=== PATIENT | female | born 1995 | race Caucasian/White ===

== ENCOUNTER → 2018-06-16 15:51 | Outpatient (CLI) | payer BC, SELFPAY ==
[2018-06-16 16:11] LABS: Basophils % 0.3 % (0.1-2.0); Eosinophils # 0.2 K/mm3 (0.0-0.4); Eosinophils % 1.4 % (0.1-12.0); Hematocrit 38.8 % (37.0-47.0); Hemoglobin 13.2 g/dL (12.2-16.2); Lymphocytes # 2.8 K/mm3 (0.7-4.5); Lymphocytes % 24.6 K/mm3 (10-50); Mean Corpuscular HGB Conc 34.1 g/dL (31.8-35.4); Mean Corpuscular Hemoglobin 29.9 pg (27.0-31.2); Mean Corpuscular Volume 87.6 fl (81-99); Mean Platelet Volume 8.7 fl (7.4-10.4); Monocytes # 0.6 K/mm3 (0.1-1.0); Monocytes % 5.3 % (1.7-9.3); Neutrophils # 7.7 K/mm3 (1.8-7.8); Neutrophils % 68.4 % (37.0-80.0); Platelet Count 222 K/mm3 (142-424); Red Blood Count 4.42 M/mm3 (4.20-5.40); Red Cell Distribution Width 12.5 % (11.5-17.5); White Blood Count 11.2 K/mm3 (4.8-10.8)
[2018-06-18 08:27] LABS: HIV Screen 4th Generation wRfx Non Reactive (Non Reactive); Rubella Antibodies, IgG <0.90 index (Immune >0.99)
[2018-06-18 08:36] LABS: Rapid Plasma Reagin Ab Titer Non Reactive (NonRea<1:1)
[2018-06-18 13:46] LABS: Hepatitis B Surface Antigen Negative (Negative); Hepatitis C Antibody <0.1 s/co ratio (0.0-0.9)
== END ==
PROVIDERS: Family Provider Family Medicine; PCP Family Medicine; Visit Provider Nurse Practitioner Obstetrics & Gynecology
DX: Z34.90 Encounter for supervision of normal pregnancy, unspecified, unspecified trimester (principal)
CPT/HCPCS: 36415; 85025; 86592; 86703; 86762; 86850; 87340; 87380; G0432

== ENCOUNTER → 2018-06-23 15:09 | Outpatient (CLI) | payer BC, SELFPAY ==
--- NOTE | 2018-06-23 15:14 | US_ITS ---
US OB transvaginal HISTORY: ITS.REASON: US OB Dates ORDERING PHYSICIAN: Rodger Cruz MD PATIENT AGE: 23 years COMPARISON: None FINDINGS: An intrauterine gestational sac is present with a pole with a crown-rump length of 2.34cm correlating to gestational age of 9w1d. heart tones are present with an FHR of 149 bpm's. Yolk sac is noted. The amnion and chorion have not yet fused. Adnexa: Unremarkable. IMPRESSION: Live intrauterine gestation at 9 weeks 1 day as described above. Estimated due date by ultrasound is 01/25/2019
== END ==
PROVIDERS: Family Provider Family Medicine; PCP Family Medicine; Visit Provider Nurse Practitioner Obstetrics & Gynecology
DX: O26.841 Uterine size-date discrepancy, first trimester (principal)
CPT/HCPCS: 76817

== ENCOUNTER → 2018-09-08 14:53 | Outpatient (CLI) | payer BC, SELFPAY ==
--- NOTE | 2018-09-08 14:58 | US_ITS ---
US OB /maternal detail: INDICATION: ITS.REASON: US OB Complete ORDERING PHYSICIAN: Rodger Cruz MD PATIENT AGE: 23 years TECHNIQUE: ultrasound transabdominal scanning. COMPARISON: No previous relevant studies. FINDINGS: Single viable intrauterine gestation. Cephalic position. Placenta: Posterior placenta grade 1. There is average amount fluid. The cervix appears satisfactory. Closed and measuring 3 cm in length. Complete survey performed and was unremarkable on the submitted images as in PACS. No discrete anomalies identified on survey imaging by technologist. Active fetus. Three-vessel cord with satisfactory umbilical cord insertion. 4- chamber heart noted. Survey of brain & ventricles unremarkable. Face and neck survey unremarkable. Diaphragm and chest views unremarkable. Abdomen: Both kidneys noted and unremarkable. Stomach noted and satisfactory. Spine: Survey of the spine satisfactory with no anomalies identified nor imaged. Both arms and legs noted. Amniotic Fluid: Adequate. Maternal adnexa: No significant findings. Measurements: Average ultrasound age 20w2d. Gestational Age 20w1d. Estimated due date by ultrasound age 0401/24/2019. Estimated weight 329 grams. BPD = 20w4d OFD = 20w4d HC = 19w6d AC = 20w2d FL = 20w0d Growth Percentile= 40% Heart Rate = 152 Cerebellum = 20w0d Humerus = 20w0d HC/AC is 1.15 (1.09-1.26). CI is 79% (70-86%). FL/BPD is 67%. FL/AC is 21%. IMPRESSION: There is a single live fetus which is in cephalic presentation. Average ultrasound age is 20 weeks and 2 days with an estimated due date of 01/24/2019. All parameters correlate. heart and body motion noted. No obvious anomalies. Please see above for detail
== END ==
PROVIDERS: PCP Family Medicine; Visit Provider Nurse Practitioner Obstetrics & Gynecology
DX: Z36.0 Encounter for antenatal screening for chromosomal anomalies (principal)
CPT/HCPCS: 76811

== ENCOUNTER → 2018-11-05 08:44 | Outpatient (CLI) | payer BC, SELFPAY ==
[2018-11-05 10:09] LABS: Glucose,Fasting 88 mg/dL (60-105)
[2018-11-05 10:52] LABS: Glucose 1 Hour 181 mg/dL (74-106)
== END ==
PROVIDERS: Visit Provider Nurse Practitioner Obstetrics & Gynecology
DX: Z34.90 Encounter for supervision of normal pregnancy, unspecified, unspecified trimester (principal)
CPT/HCPCS: 82951

== ENCOUNTER → 2018-11-12 08:41 | Outpatient (CLI) | payer BC, SELFPAY ==
[2018-11-12 09:11] LABS: Glucose,Fasting 92 mg/dL (60-105)
[2018-11-12 10:50] LABS: Glucose 1 Hour 203 mg/dL (74-106)
[2018-11-12 11:45] LABS: Glucose 2 Hour 210 mg/dL (74-106)
[2018-11-12 13:10] LABS: Glucose 3 Hour 163 mg/dL (74-106)
== END ==
PROVIDERS: PCP Family Medicine; Visit Provider Nurse Practitioner Obstetrics & Gynecology
DX: O99.814 Abnormal glucose complicating childbirth (principal); Z34.90 Encounter for supervision of normal pregnancy, unspecified, unspecified trimester
CPT/HCPCS: 36415; 82951

== ENCOUNTER → 2018-11-30 12:27 | Outpatient (CLI) | payer BC, SELFPAY ==
[2018-12-02 06:14] LABS: Buprenorphine, Urine Negative ng/mL (Cutoff=10)
== END ==
PROVIDERS: Visit Provider Nurse Practitioner Obstetrics & Gynecology
DX: Z34.90 Encounter for supervision of normal pregnancy, unspecified, unspecified trimester (principal)
CPT/HCPCS: 80307

== ENCOUNTER 2018-12-21 01:15 | Outpatient (CLI) | payer BC, SELFPAY ==
[2018-12-21 01:44] VITALS: BMI 27.1
[2018-12-21 02:02] VITALS: BP 125/81; PULSE 82; RESP 14; TEMP 36.5; O2SAT 96
[2018-12-21 02:08] LABS: Microscopic, Urine URINE MICROSCOPIC (MICROSCOPIC)
[2018-12-21 02:10] LABS: Appearance,Urine SL CLOUDY (Clear); Bilirubin,Urine Negative (Negative); Blood, Urine Negative (Negative); Color,Urine DK YELLOW (Yellow); Glucose,Urine (UA) Negative (Negative); Ketones,Urine Negative (Negative); Leukocyte Esterase,Urine 1+ (Negative); Nitrate,Urine Negative (Negative); Protein,Urine Negative (Negative); Specific Gravity, Urine 1.025 (1.005-1.030); Urobilinogen,Urine 0.2 EU/dl (0.2)
[2018-12-21 02:16] LABS: Bacteria,Urine 2+ /lpf; Mucus,Urine 1+ /lpf; Squamous Epithelial Cell,Urine Occasional #/hpf (0-5)
[2018-12-21 02:29] VITALS: BMI 25.5
== END 2018-12-21 02:58 | disposition home or self-care (01) ==
LOC: OBOUT 01:17 → OB 01:19
PROVIDERS: PCP Family Medicine; Visit Provider Nurse Practitioner Obstetrics & Gynecology
DX: O26.893 Other specified pregnancy related conditions, third trimester (principal); Z3A.35 35 weeks gestation of pregnancy; R10.30 Lower abdominal pain, unspecified
CPT/HCPCS: 59025; 81001; 87086

== ENCOUNTER → 2018-12-28 18:04 | Outpatient (CLI) | payer BC, SELFPAY | PROVIDERS: Visit Provider Nurse Practitioner Obstetrics & Gynecology | DX: Z34.90 Encounter for supervision of normal pregnancy, unspecified, unspecified trimester (principal) | CPT/HCPCS: 86403 ==

== ENCOUNTER 2019-01-19 05:04 | Inpatient (IN) ==
[2019-01-19 05:47] VITALS: BP 117/61
[2019-01-19 05:52] LABS: Microscopic, Urine URINE MICROSCOPIC (MICROSCOPIC)
[2019-01-19 05:53] LABS: Basophils % 0.3 % (0.1-2.0); Eosinophils # 0.3 K/mm3 (0.0-0.4); Eosinophils % 2.1 % (0.1-12.0); Hemoglobin 11.8 g/dL (12.2-16.2); Lymphocytes # 3.1 K/mm3 (0.7-4.5); Lymphocytes % 22.7 % (10-50); Mean Corpuscular HGB Conc 33.9 g/dL (31.8-35.4); Mean Corpuscular Volume 85.6 fl (81-99); Mean Platelet Volume 9.7 fl (7.4-10.4); Monocytes # 0.7 K/mm3 (0.1-1.0); Monocytes % 5.3 % (1.7-9.3); Neutrophils # 9.6 K/mm3 (1.8-7.8); Neutrophils % 69.6 % (37.0-80.0); Platelet Count 278 K/mm3 (142-424); Red Blood Count 4.09 M/mm3 (4.20-5.40); Red Cell Distribution Width 14.3 % (11.5-17.5); White Blood Count 13.7 K/mm3 (4.8-10.8)
[2019-01-19 05:58] LABS: Appearance,Urine CLEAR (Clear); Bilirubin,Urine Negative (Negative); Blood, Urine Negative (Negative); Color,Urine YELLOW (Yellow); Glucose,Urine (UA) Negative (Negative); Ketones,Urine Negative (Negative); Leukocyte Esterase,Urine 1+ (Negative); Protein,Urine Negative (Negative); Urobilinogen,Urine 0.2 EU/dl (0.2)
[2019-01-19 06:06] LABS: Amphetamine/Metha Screen,Urine Negative ng/mL (<1000); Barbiturates Screen,Urine Negative ng/mL (<200); Benzodiazepines Screen,Urine Negative ng/mL (<200); Cannabinoid Screen,Urine Negative ng/mL (<50); Cocaine Screen,Urine Negative ng/mL (<300); Methadone Screen,Urine Negative ng/mL (<300); Opiate Screen,Urine Negative ng/mL (<300); Phencyclidine Screen,Urine Negative ng/mL (<25)
[2019-01-19 06:09] LABS: Bacteria,Urine 2+ /lpf; Mucus,Urine 1+ /lpf; Squamous Epithelial Cell,Urine 20-50 #/hpf (0-5)
--- NOTE | 2019-01-19 08:55 | Progress Note ---
Internal Medicine - PN: Subj *Date: 01/19/19 *Time: 08:53 Interval history: She is a 23-year-old 2 para 1 at 39 and 1 weeks gestational age. She has had lots of pressure and cramps as well as a small for gestational age . As a result of that she is brought in for induction of labor at term. Exam Vital signs and Labs for Last 24 Hours: Temp Pulse Resp BP Pulse Ox 98.4 F 92 H 18 117/61 97 01/19/19 05:42 01/19/19 05:42 01/19/19 05:42 01/19/19 05:42 01/19/19 05:42 Laboratory Results - last 24 hr 01/19/19 05:30: WBC 13.7 H, RBC 4.09 L, Hgb 11.8 L, Hct 35.0 L, MCV 85.6, MCH 29.0, MCHC 33.9, RDW 14.3, Plt Count 278, MPV 9.7, Neut % (Auto) 69.6, Lymph % (Auto) 22.7, [place] % (Auto) 5.3, Eos % (Auto) 2.1, Baso % (Auto) 0.3, Neut # (Auto) 9.6 H, Lymph # (Auto) 3.1, [place] # (Auto) 0.7, Eos # (Auto) 0.3, Baso # (Auto) 0.0 01/19/19 05:30: Blood Type A Positive, Antibody Screen Negative 01/19/19 05:37: POC Glucose 112 H 01/19/19 05:40: Urine Color Yellow, Urine Appearance Clear, Urine pH 7.0, Ur Specific [place] 1.020, Urine Protein Negative, Urine Glucose (UA) Negative, Urine Ketones Negative, Urine Blood Negative, Urine Nitrate Negative, Urine Bilirubin Negative, Urine Urobilinogen 0.2, Ur Leukocyte Esterase 1+ A, Urine WBC 5-10, Ur Squamous Epith Cells 20-50, Urine Bacteria 2+, Urine Mucus 1+ 01/19/19 05:40: Urine Opiates Screen Negative, Urine Methadone Screen Negative, Ur Barbituates Screen Negative, Ur Phencyclidine Scrn Negative, Ur Amphetamines Screen Negative, U Benzodiazepines Scrn Negative, Urine Cocaine Screen Negative, U Marijuana (THC) Screen Negative I & O for Last 24 hours: Intake & Output 01/16/19 01/17/19 01/18/19 01/19/19 11:59 11:59 11:59 11:59 Weight 172 lb - Constitutional no acute distress - *Routine Exam Patient deferred: external exam, groin exam, perineal exam Assessment and Plan (1) Normal delivery Current visit: Yes Status: Acute Category: Medical Code(s): O80 - Encounter for full-term uncomplicated delivery (2) Small for gestational age fetus during in third trimester Current visit: Yes Status: Acute Category: Medical Code(s): O36.5930 - Maternal care for other known or suspected poor growth, third trimester, not applicable or unspecified - Assessment and plan all Dx Assessment and Plan for all problems:: She is 3 cm dilated 75% effaced and station -2. I ruptured her membranes and there was clear fluid. She is simin every 2-3 minutes. The nonstress test is reactive. We will expect a vaginal delivery.
--- NOTE | 2019-01-19 11:16 | Progress Note ---
Labor Note - Subjective: Date: 01/19/19 Time: 11:15 - Objective: NST:: Reactive Contractions:: every 2-3 minutes Cervical Dilation:: 6-7 Effacement:: 100% Station: +1 Membranes: artificially ruptured - Fetus: Monitoring?: Yes monitoring type:: External - Assessment: Labor progressing?: Yes Cephalopelvic disproportion?: No Patient Problems: All Active Problems Abscess, dental (Acute) Normal delivery (Acute) Small for gestational age fetus during in third trimester (Acute) (Acute) - Plan: Anesthesia for epidural?: Yes Continue to labor down?: Yes Plan for ?: No Continue to monitor?: Yes Comment:: She just received her epidural. She is progressing well. She is 6-7 cm. Her cervix has thinned out and the baby's head is quite low.
--- NOTE | 2019-01-19 13:39 | Procedure Note ---
- Delivery Note Delivery Date:: 01/19/19 Delivery Time:: 13:28 Anesthesia Type: Epidural Was labor medically induced?: Yes Induction method: per pitocin protocol Infant delivered prior to 39 weeks?: No at 1 minute: 8 at 5 minutes: 9 Delivery Procedure:: She is a 23-year-old 2 para 1 at 39 and 1 weeks gestational age. She barton s had lots of contractions and pressure. She was found to be 3-4 cm dilated. As result of that we elected to augment her labor at term. She was started on IV oxytocin and had her membranes ruptured. Under labor epidural she progressed to full dilation and delivered spontaneously a liveborn female child at 1:28 PM in the afternoon of January 19, 2019. On deliver the head the anterior shoulder then delivered followed by the rest of the infant's body atraumatically. The oropharynx and nasopharynx were bulb suction. The baby cried spontaneously. We then allowed the cord to continue to pulsate for approximately 1 minute. We then doubly clamped and cut the cord. The baby was then placed on the mother's abdomen for further care. The nurses assigned Apgars of 8 at 1 minute and 9 at 5 minutes. We then obtained cord blood as well as cord pH. Using gentle traction on the cord and countertraction the fundus I was able to easily deliver the placenta intact. It had a normal three-vessel cord. There were no perineal or vaginal lacerations. She has a positive blood, she is rubella immune and was group A streptococcus negative. She plans to bottlefeed. Her graduate studies dean is Dr. Cortez. Estimated blood loss was approximately 400 cc. Placental Delivery Description: Spontaneous
[2019-01-20 06:17] LABS: Hemoglobin 11.7 g/dL (12.2-16.2)
--- NOTE | 2019-01-20 08:21 | Progress Note ---
Internal Medicine - PN: Subj *Date: 01/20/19 *Time: 08:19 Interval history: She is doing well this morning. She is eating and drinking and ambulating. She is bottlefeeding. Her lochia is normal. She denies any pain. Exam Vital signs and Labs for Last 24 Hours: Temp Pulse Resp BP Pulse Ox 98.4 F 92 H 18 117/61 97 01/19/19 05:42 01/19/19 05:42 01/19/19 05:42 01/19/19 05:42 01/19/19 05:42 Laboratory Results - last 24 hr 01/19/19 13:28: Cord ABG pH 7.26 L 01/20/19 06:05: Hgb 11.7 L, Hct 36.0 L I & O for Last 24 hours: Intake & Output 01/17/19 01/18/19 01/19/19 01/20/19 11:59 11:59 11:59 11:59 Weight 172 lb Microbiology Reports for the Last 24 Hours: Microbiology 01/19/19 05:40 Urine,Clean Catch Urine Culture - Final Multiple organisms, suggests contamination. - Constitutional no acute distress Assessment and Plan (1) Normal delivery Current visit: Yes Status: Acute Category: Medical Code(s): O80 - Encounter for full-term uncomplicated delivery (2) Small for gestational age fetus during in third trimester Current visit: Yes Status: Acute Category: Medical Code(s): O36.5930 - Maternal care for other known or suspected poor growth, third trimester, not applicable or unspecified - Assessment and plan all Dx Assessment and Plan for all problems:: She is doing well this morning. We will plan to send her home tomorrow.
--- NOTE | 2019-01-21 08:30 | Discharge Summary ---
General - General Admission date:: 01/19/19 Discharge date: 01/21/19 HPI HPI: She is a 23-year-old 2 para 1 at 39+ 1 weeks gestational age. She complained of pressure as well as occasional contractions. She was thought to have a small for gestational age baby because she measures up smaller than her dates. As result of that she was offered augmentation at term. Hospital Course Hospital Course: She was started on IV oxytocin and had her membranes ruptured. She progressed to full dilation and delivered spontaneously a liveborn female child at 1:28 PM in the afternoon of January 19, 2019. There was a liveborn female child weighing 7 pounds 0 ounces and was 18-1/2 inches long. She had Apgars of 8 at 1 minute and 9 at 5 minutes. There were no perineal or vaginal lacerations. She has a positive blood, she is rubella nonimmune and was group A streptococcus negative. She is bottlefeeding. She is discharged home to follow-up with me in approximately 2 weeks time. She was given the usual instructions with respect to limiting her activity, driving and sexual activity. Her condition on discharge is stable. Objective Vital signs: Temp Pulse Resp BP Pulse Ox 98.4 F 92 H 18 117/61 97 01/19/19 05:42 01/19/19 05:42 01/19/19 05:42 01/19/19 05:42 01/19/19 05:42 no acute distress DS: Diagnosis - Discharge Diagnosis (1) Normal delivery Status: Acute (2) Small for gestational age fetus during in third trimester Status: Acute Discharge Plan - Patient Discharge Instructions ACTIVITY: No heavy lifting DIET: continue same diet - Follow up Plan Disposition: Home, Self-Residential Medications: Home Medications Medication Instructions Recorded Confirmed Type ferrous sulfate 325 mg (65 mg 325 mg PO DAILY tab 11/30/18 01/19/19 History iron) tablet lancets See Dose Instructions .ROUTE 11/30/18 01/18/19 History .MEDSUPPLY 25 Days #102 each multivitamin with minerals-folic 200 mcg PO DAILY tab 11/30/18 01/19/19 History acid 200 mcg chewable tablet Prescriptions/Medication Reconciliation: Continue lancets See Dose Instructions .ROUTE .MEDSUPPLY 25 Days #102 each multivitamin with minerals-folic acid 200 mcg chewable tablet 200 mcg PO DAILY tab ferrous sulfate 325 mg (65 mg iron) tablet 325 mg PO DAILY tab
== END 2019-01-21 10:00 | disposition home or self-care (01) | DRG 807 ==
LOC: OB 05:04
PROVIDERS: ADMIT Nurse Practitioner Obstetrics & Gynecology; ATTEND Nurse Practitioner Obstetrics & Gynecology
CPT/HCPCS: J0595

== ENCOUNTER 2020-05-12 20:22 | Emergency (ER) | payer MEDICAID, SELFPAY ==
[2020-05-12 20:25] VITALS: BP 125/79; PULSE 110; RESP 16; TEMP 36.8; O2SAT 100; BMI 30.9
--- NOTE | 2020-05-12 20:32 | XR_ITS ---
PROCEDURE: XR CHEST 2V CLINICAL HISTORY: chest tightness smoking history COMPARISON: PA and lateral chest 09/19/2019 FINDINGS: The cardiomediastinal silhouette and pulmonary vascularity are within normal limits. The lungs are clear without infiltrates, suspicious nodules, or pleural effusions. No acute bony abnormalities. IMPRESSION: No acute findings. Dictated by: Dr. Hima Alvarenga MD 05/13/2020 07:[address] Hima Alvarenga MD in [facility] 05/13/2020 07:47
--- NOTE | 2020-05-12 20:32 | CT_ITS ---
PROCEDURE: CT HEAD/BRAIN WO CON Patient Age:25Y CLINICAL INDICATION: bilateral arm numbness and muscles'drawing up this evening the the the the COMPARISON: No exams were available for comparison TECHNIQUE: Axial images were obtained. All CT scans at the facility use one or more dose reduction, viz: automated exposure control, ma/kV adjustment per patient size (including targeted exams where dose is matched to indication, i.e. head), or iterative reconstruction technique. FINDINGS: No acute intracranial findings. No intracranial hemorrhage. No hydrocephalus.The ventricles and basal cisterns appear clear and satisfactory. No mass or midline shift nor mass effect. No subdural or extra-axial fluid collection is evident. Posterior fossa unremarkable. The streak artifact most likely accounts for the low density appearance at the inferior theo-medulla region Skull intact- calvarium unremarkable appearance. Nomastoid effusions. Mastoid air cells are well developed and clear. Middle ear clear. IAC's symmetric. Nosinus air-fluid level. Visualized portions of the paranasal sinuses and orbits unremarkable. IMPRESSION: No acute intracranial findings . Unremarkable CT brain without contrast Dictated by: Saul Chavez MD 05/12/2020 23:53 Electronically signed by Saul Chavez MD in [facility] 05/12/2020 23:53
--- NOTE | 2020-05-12 20:32 | ECG_ITS ---
APPROVED REPORT Exam: Resting ECG HR:119 bpm ECG Measurements Heart Rate 119 AXES UT 120 P -12 QRSd 84 QRS -2 QT 356 T 14 QTc 500 <Conclusion> Sinus tachycardia Nonspecific ST abnormality Abnormal ECG Electronically signed by : Grady [place], 05/13/2020 06:35:36
[2020-05-12 20:49] LABS: Basophils % 0.2 % (0.1-2.0); Eosinophils # 0.2 K/mm3 (0.0-0.4); Eosinophils % 1.1 % (0.1-12.0); Hematocrit 46.4 % (37.0-47.0); Hemoglobin 16.2 g/dL (12.2-16.2); Lymphocytes # 4.2 K/mm3 (0.7-4.5); Lymphocytes % 26.8 % (10-50); Mean Corpuscular HGB Conc 34.9 g/dL (31.8-35.4); Mean Corpuscular Hemoglobin 30.3 pg (27.0-31.2); Mean Corpuscular Volume 86.8 fl (81-99); Mean Platelet Volume 9.3 fl (7.4-10.4); Monocytes # 0.6 K/mm3 (0.1-1.0); Monocytes % 3.5 % (1.7-9.3); Neutrophils # 10.7 K/mm3 (1.8-7.8); Neutrophils % 68.4 % (37.0-80.0); Platelet Count 269 K/mm3 (142-424); Red Blood Count 5.34 M/mm3 (4.20-5.40); Red Cell Distribution Width 13.3 % (11.5-17.5); White Blood Count 15.7 K/mm3 (4.8-10.8)
[2020-05-12 20:51] LABS: MANUAL DIFFERENTIAL MANUAL DIFFERENTIAL (MANUAL DIFF)
[2020-05-12 20:52] LABS: Alanine Aminotransferase 34 U/L (12-78); Albumin Level 4.9 g/dl (3.5-5.0); Albumin/Globulin Ratio 1.4 (1.1-1.8); Alkaline Phosphatase 101 U/L (38-126); Aspartate Amino Transferase 36 U/L (14-36); Bilirubin,Total 0.8 mg/dl (0.2-1.3); Blood Urea Nitrogen 12 mg/dl (7-17); Carbon Dioxide 16 mmol/L (22.0-30.0); Chloride 106 mmol/L (98-107); Creatinine Clearance Estimated 156 mL/min (50-200); Estimated Glomerular Filt Rate 100 ml/min (>60); GFR (African American) 121 ML/MIN (>60); Globulin 3.6 g/dL (1.3-3.2); Glucose 139 mg/dl (74-100); Sodium 139 mmol/L (136-145); Total Protein,Serum 8.5 g/dl (6.3-8.2)
[2020-05-12 20:53] VITALS: BP 145/75; PULSE 73; RESP 22; O2SAT 98
[2020-05-12 20:53] LABS: Creatine Kinase 85 U/L (30-135); Magnesium 2.2 mg/dl (1.6-2.3)
[2020-05-12 20:58] LABS: C-Reactive Protein 2.9 mg/L (0-4)
[2020-05-12 21:07] LABS: CKMB Relative Index 0.6 U/L (0-4.0); Creatine Kinase MB 0.5 ng/ml (0.0-2.03)
[2020-05-12 21:09] LABS: Coronavirus 19 IgG Antibody Positive (Negative); Coronavirus 19 IgM Antibody Positive (Negative)
[2020-05-12 21:10] LABS: Troponin I < 0.01 ng/ml (0.00-0.034)
[2020-05-12 21:12] LABS: Erythrocyte Sedimentation Rate 8 mm/hr (0-20)
[2020-05-12 21:14] LABS: Eosinophils % 1 % (0-3); Lymphocytes % 19 % (10-50); Monocytes % 3 % (2-9); Neutrophils % 75 % (42-76); Platelet Estimate Normal; RBC Morphology Normal; Total Cells Counted 100
--- NOTE | 2020-05-12 21:28 | PC.NURSE ---
spoke with dr beckett per request of dr escobar re: whether to go on and swab patient with the outpatient swab .
[2020-05-12 21:31] LABS: Microscopic, Urine URINE MICROSCOPIC (MICROSCOPIC)
[2020-05-12 21:40] VITALS: BP 113/57; PULSE 68; RESP 18; O2SAT 99
[2020-05-12 22:06] LABS: Appearance,Urine CLEAR (Clear); Bilirubin,Urine Negative (Negative); Blood, Urine TRACE-I (Negative); Color,Urine YELLOW (Yellow); Glucose,Urine (UA) Negative (Negative); Ketones,Urine Negative (Negative); Leukocyte Esterase,Urine Negative (Negative); Nitrate,Urine Negative (Negative); PH,Urine 6.5 (5.0-8.5); Protein,Urine Negative (Negative); Urobilinogen,Urine 0.2 EU/dl (0.2)
[2020-05-12 22:13] LABS: RBC,Urine Occasional #/hpf (0-3)
[2020-05-12 22:13] LABS: Urine Pregnancy, HCG Qual. Negative (Negative)
[2020-05-12 22:17] LABS: Barbiturates Screen,Urine Negative ng/ml (<200); Benzodiazepines Screen,Urine Negative ng/ml (<200)
[2020-05-12 22:18] LABS: Amphetamine/Metha Screen,Urine Negative ng/ml (<1000); Cannabinoid Screen,Urine Positive ng/ml (<50)
[2020-05-12 22:19] LABS: Cocaine Screen,Urine Negative ng/ml (<300)
[2020-05-12 22:20] LABS: Methadone Screen,Urine Negative ng/ml (<300); Opiate Screen,Urine Negative ng/ml (<300)
[2020-05-12 22:21] LABS: Phencyclidine Screen,Urine Negative ng/ml (<25)
[2020-05-12 23:14] VITALS: BP 114/88; PULSE 81; RESP 18; O2SAT 98
--- NOTE | 2020-05-12 23:59 | HMH.EDANX ---
ED Disposition Clinical Impression: Acute anxiety, COVID-19 virus IgG antibody detected, COVID-19 virus IgM antibody detected Disposition: Home, Self-Care Condition on Discharge: Good Instructions: Anxiety and Panic Attacks (Alternative Therapy) Additional Instructions: call pcp for follow up and covid results and take meds as directed Referrals: Callum Cortez MD [Primary Care Provider] - - Critical Care Critical Care Time: No Attestation: On 05/12/20, the high probability of a clinically significant, sudden or life threatening deterioration of the following system(s) required my full and direct attention, intervention and personal management. The time I documented below is in addition to time spent performing reported procedures but includes the following listed in this critical care notation. Medical Decision Making - Medical Records Medical records reviewed: Yes: I reviewed the patient's medical records. - Alberto Inquiry Pt receiving controlled substance: No Vital Signs: 05/12/20 20:25 05/12/20 20:53 05/12/20 21:40 Temperature 98.3 F Temperature Source Temporal Artery Scan Pulse Rate [Right Brachial] 110 H 73 68 Respiratory Rate 16 22 18 Blood Pressure [Right Arm] 125/79 145/75 H 113/57 L Blood Pressure Mean [Right Arm] 94 98 75 Blood Pressure Source [Right Arm] Automatic Cuff Automatic Cuff Automatic Cuff Blood Pressure Position [Right Arm] Supine Supine Sitting 02 Sat by Pulse Oximetry 100 98 99 Oxygen Delivery Method Room Air Room Air Room Air 05/12/20 23:14 Temperature Temperature Source Pulse Rate [Right Brachial] 81 Respiratory Rate 18 Blood Pressure [Right Arm] 114/88 Blood Pressure Mean [Right Arm] 96 Blood Pressure Source [Right Arm] Blood Pressure Position [Right Arm] 02 Sat by Pulse Oximetry 98 Oxygen Delivery Method Room Air - Lab Data Lab results reviewed: Yes: I reviewed the patient's lab results. Lab Results 05/12/20 20:30: WBC 15.7 H, RBC 5.34, Hgb 16.2, Hct 46.4, MCV 86.8, MCH 30.3, MCHC 34.9, RDW 13.3, Plt Count 269, MPV 9.3, Neut % (Auto) 68.4, Lymph % (Auto) 26.8, [place] % (Auto) 3.5, Eos % (Auto) 1.1, Baso % (Auto) 0.2, Neut # (Auto) 10.7 H, Lymph # (Auto) 4.2, [place] # (Auto) 0.6, Eos # (Auto) 0.2, Baso # (Auto) 0.0, Total Counted 100, Neutrophils % (Manual) 75, Band Neutrophils % 2.0, Lymphocytes % (Manual) 19, Monocytes % (Manual) 3, Eosinophils % (Manual) 1, Platelet Estimate Normal, RBC Morphology Normal 05/12/20 20:30: Sodium 139, Potassium 3.0 L, Chloride 106, Carbon Dioxide 16 L, Anion Gap 20.0 H, BUN 12, Creatinine 0.70, Estimated Creat Clear 156, Estimated GFR 100, Est GFR ( Amer) 121, Glucose 139 H, Calcium 10.0, Total Bilirubin 0.8, AST 36, ALT 34, Alkaline Phosphatase 101, Troponin I < 0.01, C-Reactive Protein 2.9, Total Protein 8.5 H, Albumin 4.9, Globulin 3.6 H, Albumin/Globulin Ratio 1.4 05/12/20 20:30: ESR 8 05/12/20 20:30: Phosphorus 1.0 L, Magnesium 2.2, Total Creatine Kinase 85, CK-MB (CK-2) 0.5, CK-MB (CK-2) Rel Index 0.6, Troponin I < 0.01 05/12/20 20:30: SARS-CoV-2 IgG Ab (Rapid) Positive A, SARS-CoV-2 IgM Ab (Rapid) Positive A 05/12/20 21:22: Urine Color Yellow, Urine Appearance Clear, Urine pH 6.5, Ur Specific [place] 1.010, Urine Protein Negative, Urine Glucose (UA) Negative, Urine Ketones Negative, Urine Blood Trace-i, Urine Nitrate Negative, Urine Bilirubin Negative, Urine Urobilinogen 0.2, Ur Leukocyte Esterase Negative, Urine RBC Occasional, Ur Squamous Epith Cells 5-10 05/12/20 21:25: Urine HCG, Qual Negative 05/12/20 21:25: Urine Opiates Screen Negative, Urine Methadone Screen Negative, Ur Barbituates Screen Negative, Ur Phencyclidine Scrn Negative, Ur Amphetamines Screen Negative, U Benzodiazepines Scrn Negative, Urine Cocaine Screen Negative, U Marijuana (THC) Screen Positive H Result diagrams: 05/12/20 20:30 05/12/20 20:30 Orders (Tests/Meds): ED MEDICATIONS Generic Name Dose Route Start Last Admin Trade Name Freq PRN Re
[2020-05-13 00:22] LABS: Troponin I < 0.01 ng/ml (0.00-0.034)
[2020-05-13 00:23] VITALS: BP 110/63; PULSE 69; RESP 16; TEMP 36.8; O2SAT 97
[2020-05-14 08:32] LABS: Covid-19 Nasal PCR Sendout UK NOT DETECTED
== END 2020-05-13 00:26 | disposition home or self-care (01) ==
PROVIDERS: Emergency Provider Emergency Medicine; PCP Family Medicine
DX: F41.9 Anxiety disorder, unspecified (principal); Z01.84 Encounter for antibody response examination; F17.210 Nicotine dependence, cigarettes, uncomplicated
CPT/HCPCS: 36415; 70450; 71046; 80053; 80305; 81001; 81025; 82550; 82553; 83735; 84100; 84484; 85007; 85025; 85651; 86140; 86328; 93005; 96365; 96375; 99284; U0003

== ENCOUNTER 2021-06-06 13:22 | Emergency (ER) | payer SELFPAY ==
[2021-06-06 13:23] VITALS: BP 143/75; PULSE 77; RESP 19; TEMP 36.7; O2SAT 98; BMI 25.8
[2021-06-06 14:03] LABS: Apearance,Urine Clear (Clear); Bilirubin,Urine Negative (Negative); Blood, Urine Negative (Negative); Color,Urine Yellow (Yellow); Glucose,Urine (UA) Negative (Negative); Ketones,Urine Negative (Negative); Protein,Urine Negative (Negative); Specific Gravity, Urine 1.025 (1.005-1.030); UTC Leukocyte Esterase,Urine Negative (Negative); UTC Nitrate,Urine Negative (Negative); UTC Pregnancy Test, Urine Negative (Negative); Urobilinogen,Urine 0.2 EU/dl (0.2)
--- NOTE | 2021-06-06 14:15 | HMH.EDUTC ---
[facility] [place] Disposition Clinical Impression: Muscle spasm Disposition: Home, Self-Care Condition on Discharge: Good Instructions: DI for Muscle Spasm, Methocarbamol, Guaifenesin Additional Instructions: *Ibuprofen rohan 6 hours with meal as needed for pain/inflammation if your doctor has said you can take it *Not additional anti-inflammatory like motrin, aleve, advil with the above amount of ibuprofen. You can still take Tylenol every 4 hours as needed if you need something else for pain *Ice 20 minutes every 2 hours for the first 48 hours after the initial injury followed by moist heat every 20 minutes 3-4 times a day to affected area *Muscle relaxer every as prescribed as needed for muscle spasms but remember, it WILL cause drowsiness You cannot take it and drive, operate machinery or care for small children. *Keep this area active, no movement leads to more stiffness, However take it easy and avoid heavy lifting pushing or pulling *Follow up with you family doctor if no improvement for further treatment Prescriptions: guaiFENesin [Mucinex 600mg tablet] 1 - 2 tab PO Q12HP PRN #20 tab.er.12h PRN Reason: Congestion Transmission Status: Pending to [facility] #[id number] methocarbamoL [Methocarbamol] 750 mg PO BID PRN #10 tab PRN Reason: Muscle Spasm Transmission Status: Pending to [facility] # Referrals: Callum Cortez MD [Primary Care Provider] - As needed Time of Disposition: 14:49 Medical Decision Making - Alberto Inquiry Pt receiving controlled substance: No Alberto was queried for this patient: No Vital Signs: 06/06/21 13:23 Temperature 98.1 F Temperature Source Oral Pulse Rate [Left Radial] 77 Respiratory Rate 19 Blood Pressure [Right Arm] 143/75 H Blood Pressure Mean [Right Arm] 97 Blood Pressure Source [Right Arm] Automatic Cuff Blood Pressure Position [Right Arm] Sitting 02 Sat by Pulse Oximetry 98 Oxygen Delivery Method Room Air - Lab Data Lab Results 06/06/21 13:55: Urine Color Yellow, Urine Appearance Clear, Urine pH 6.0, Ur Specific [place] 1.025, Urine Protein Negative, Urine Glucose (UA) Negative, Urine Ketones Negative, Urine Blood Negative, Urine Nitrate Negative, Urine Bilirubin Negative, Urine Urobilinogen 0.2, Ur Leukocyte Esterase Negative, Tst Clinic Negative Orders (Tests/Meds): ORDERS Category Date Time Status XR chest 2V Stat Exams 06/06/21 14:19 Taken - Radiology Data #1 Image(s): Chest Image Reviewed: Yes I have reviewed radiologist's interpretation [facility] [place] HPI - General Stated complaint: Rt side pain, congestion Time Seen by Provider: 06/06/21 14:15 Mode of Arrival: Ambulatory Source of Information: Patient Limitations: No Limitations Description of Symptoms (Recalled from Triage Doc. by RN): c/o right side of rib and back hurting for 2 weeks, suspected pulled muscle but developled cough and mucus HEENT Symptoms (Recalled from RN notes): No Resp Symptoms (Recalled from RN notes): No Skin Symptoms (Recalled from RN notes): No MS Symptoms (Recalled from RN notes): Yes Functional Status (Recalled from RN notes): na - History of Present Illness Provider Complaint: Patient states that she recently started exercising and thinks she pulled a muscle in her right shoulder blade area and states that it feels tight and with certain movements feels like she has muscle spasms but started the last couple of days with cough on and off and at times she will cough up some clear mucous States that she sleeps with fan and it could be drainage from her nose - Related Data Home Medications Medication Instructions Recorded Confirmed Sertraline HCl 25 mg PO DAILY 05/12/20 05/12/20 Previous Rx's Medication Instructions Recorded guaiFENesin [Mucinex 600mg tablet] 1 - 2 tab PO Q12HP PRN #20 06/06/21 tab.er.12h methocarbamoL [Methocarbamol] 750 mg PO BID PRN #10 tab 06/06/21 Allergies Allergy/AdvReac Type Severity Reaction Status D
--- NOTE | 2021-06-06 14:19 | XR_ITS ---
PROCEDURE: XR CHEST 2V CLINICAL HISTORY: cough/congestion COMPARISON: CR XR CHEST 2V from 09/19/[address] CHEST WO CON from 09/19/2019 CR XR CHEST 2V from 05/12/2020 FINDINGS: The cardiomediastinal silhouette and pulmonary vascularity are within normal limits. The lungs are clear without infiltrates, suspicious nodules, or pleural effusions. No acute bony abnormalities. IMPRESSION: No acute findings. Dictated by: Venkat Fajardo MD 06/06/2021 14:41 Venkat Fajardo MD in [facility] 06/06/2021 14:41
[2021-06-06 14:59] VITALS: BP 143/75; PULSE 77; RESP 19; TEMP 36.7; O2SAT 98
== END 2021-06-06 15:00 | disposition home or self-care (01) ==
PROVIDERS: Emergency Provider Nurse Practitioner; PCP Family Medicine
DX: M62.838 Other muscle spasm (principal); M25.511 Pain in right shoulder; R05 Cough; F17.210 Nicotine dependence, cigarettes, uncomplicated
CPT/HCPCS: 71046; 81003; 81025; 99202; G0463

== ENCOUNTER → 2021-07-23 13:52 | Outpatient (CLI) | payer OTHER, SELFPAY | PROVIDERS: PCP Family Medicine; Visit Provider Nurse Practitioner | DX: Z20.822 Contact with and (suspected) exposure to COVID-19 (principal); U07.1 COVID-19 | CPT/HCPCS: C9803; U0003; U0005 ==

== ENCOUNTER 2022-08-27 18:34 | Emergency (ER) | payer OTHER, SELFPAY ==
[2022-08-27 18:36] VITALS: BP 173/79; PULSE 85; RESP 18; TEMP 36.9; O2SAT 100; BMI 26.6
--- NOTE | 2022-08-27 20:01 | XR_ITS ---
PROCEDURE INFORMATION: Exam: XR Chest Exam date and time: 08/27/2022 8:32 PM Age: 27 years old Clinical indication: Other: Congestion TECHNIQUE: Imaging protocol: Radiologic exam of the chest. Views: 2 views. COMPARISON: CR XR CHEST 2V 06/06/2021 2:22 PM FINDINGS: Lungs: No consolidation. Pleural spaces: No pneumothorax. Heart/Mediastinum: No cardiomegaly. Bones/joints: No acute fracture. IMPRESSION: No acute findings.
[2022-08-27 20:07] LABS: Coronavirus 19, PCR Not Detected (NotDetected); Influenza A, PCR Not Detected (NotDetected); Influenza B, PCR Not Detected (NotDetected)
[2022-08-27 20:31] VITALS: BP 117/52; PULSE 85; O2SAT 99
--- NOTE | 2022-08-27 20:39 | PC.NURSE ---
Pt gone to RAD
--- NOTE | 2022-08-27 20:54 | PC.NURSE ---
Pt back from RAD
[2022-08-27 21:00] VITALS: BP 130/75; PULSE 83; O2SAT 100
--- NOTE | 2022-08-27 21:06 | PC.NURSE ---
Dr. Wynn at [facility] speaking with pt
--- NOTE | 2022-08-27 21:06 | HMH.EDURI ---
Discharge Plan Disposition Patient Disposition: Home, Self-Care Prescriptions Prescriptions: New azithromycin [azithromycin] 250 mg tablet 250 mg PO DIRECTED Qty: 6 0RF Rx Instructions: Take two (2) tablets on day #1, then one (1) tablet day #2 thru #5 benzonatate 100 mg Capsule 100 mg PO Q8H Qty: 20 0RF prednisone [prednisone] 20 mg tablet 20 mg PO BID Qty: 10 0RF No Action buspirone 10 mg tablet 10 mg PO BID amoxicillin 500 mg capsule 500 mg PO Q12H 10 Days Qty: 20 0RF sertraline 25 MG tablet 25 mg PO DAILY Referrals Follow up/Referrals: Callum Cortez MD [Primary Care Provider] - See instructions Clinical Impressions Clinical Impression: Bronchitis Instructions Patient Instructions: DI for Acute Bronchitis Discharge ED Provider: Shawn Wynn URI/Sore Throat HPI General Chief Complaint: Upper Respiratory Infection Stated Complaint: chest congestion,cough,STARR Time Seen by Provider: 08/27/22 21:06 Mode of Arrival: Ambulatory Source of Information: Patient Limitations: No Limitations Description of Symptoms (Recalled from ER Triage Doc. by RN): pt c/o Starr, fatigue, body aches, chills, congestion x 4 weeks History of Present Illness HPI Narrative: fatigue with achey and cough and congestion over the last few week s but worse today Complaint: cough Onset (ago): day(s) Duration: intermittent Severity: moderate Able to tolerate fluids by mouth: Yes Treatments prior to arrival: none Related Data Home Medications Medication Instructions Recorded Confirmed sertraline 25 mg tablet 25 mg PO DAILY anxiety/depression 05/12/20 08/06/21 buspirone 10 mg tablet 10 mg PO BID 08/06/21 08/06/21 Previous Rx's Medication Instructions Recorded amoxicillin 500 mg capsule 500 mg PO Q12H otitis media 10 08/06/21 days #20 caps azithromycin 250 mg tablet 250 mg PO DIRECTED #6 tabs 08/27/22 benzonatate 100 mg capsule 100 mg PO Q8H #20 caps 08/27/22 prednisone 20 mg tablet 20 mg PO BID #10 tabs 08/27/22 Allergies Allergy/AdvReac Type Severity Reaction Status Date / Time nickel Allergy Unknown Hives Verified 08/06/21 11:41 PFSH PFSH Social History Smoking Status: Current every day smoker tobacco type: cigarettes packs per day: 1 alcohol intake: never substance use type: former substance user current occupational status: employed Travel in the last 8 weeks: None ROS Obtained: Yes All systems reviewed & no additional complaints except as documented Physical Exam General General appearance: alert Head Head exam: normocephalic Eye Eye exam: Present PERRL and EOMI; Absent scleral icterus ENT ENT exam: Present normal oropharynx and mucous membranes moist Neck Neck exam: Present full ROM; Absent trachea midline Respiratory Respiratory exam: Present normal lung sounds bilaterally Cardiovascular Cardiovascular exam: Present regular rate; Absent systolic murmur or rubs Abdominal Exam Abdominal exam: Present soft Extremities Exam Extremities exam: Present full ROM Neurological Exam Neurological exam: Present alert, oriented X3 and CN II-XII intact; Absent motor sensory deficit Psychiatric Psychiatric exam: Present normal affect Skin Skin exam: Absent rash Medical Decision Making Medical Records Medical records reviewed: Yes I reviewed the patient's medical records. Alberto Inquiry Pt receiving controlled substance: No Vital Signs: 08/27/22 18:36 08/27/22 20:31 08/27/22 21:00 Temperature 98.4 F Temperature Source Oral Pulse Rate 85 83 Pulse Rate [Right] 85 Respiratory Rate 18 Blood Pressure 117/52 L 130/75 Blood Pressure [Right Arm] 173/79 H Blood Pressure Mean [Right Arm] 110 02 Sat by Pulse Oximetry 100 99 100 Oxygen Delivery Method Room Air Room Air Lab Data Lab results reviewed: Yes I reviewed the patient's lab results. Lab Results 08/27/22 19:58: SARS-CoV-2 (PCR) Not detected, Influenza A U
[2022-08-27 21:32] LABS: Basophils # 0.1 K/mm3 (0-0.2); Basophils % 0.6 % (0.1-2.0); Eosinophils # 0.2 K/mm3 (0.0-0.4); Eosinophils % 1.4 % (0.1-12.0); Hematocrit 44.2 % (37.0-47.0); Lymphocytes # 2.7 K/mm3 (0.7-4.5); Lymphocytes % 20.7 % (10-50); Mean Corpuscular HGB Conc 33.9 g/dL (31.8-35.4); Mean Corpuscular Hemoglobin 30.6 pg (27.0-31.2); Mean Corpuscular Volume 90.2 fl (81-99); Mean Platelet Volume 9.1 fl (7.4-10.4); Monocytes # 0.5 K/mm3 (0.1-1.0); Monocytes % 3.7 % (1.7-9.3); Neutrophils # 9.5 K/mm3 (1.8-7.8); Neutrophils % 73.6 % (37.0-80.0); Platelet Count 286 K/mm3 (142-424); Red Cell Distribution Width 13.1 % (11.5-17.5); White Blood Count 12.9 K/mm3 (4.8-10.8)
[2022-08-27 21:35] LABS: Chloride 106 mmol/L (98-107); Sodium 139 mmol/L (136-145)
[2022-08-27 21:36] LABS: Potassium 3.9 mmoL/L (3.5-5.1)
[2022-08-27 21:38] LABS: Alanine Aminotransferase 25 U/L (12-78); Alkaline Phosphatase 68 U/L (38-126); Aspartate Amino Transferase 29 U/L (14-36); Bilirubin,Total 0.3 mg/dl (0.2-1.3); Blood Urea Nitrogen 9 mg/dl (7-17); Creatinine Clearance Estimated 136 mL/min (50-200); Estimated Glomerular Filt Rate 99 ml/min (>60); GFR (African American) 120 ML/MIN (>60)
[2022-08-27 21:39] LABS: Albumin Level 4.2 g/dl (3.5-5.0); Albumin/Globulin Ratio 1.4 (1.1-1.8); Anion Gap 14.9 mEq/L (5-15); Calcium 9.7 mg/dl (8.4-10.2); Carbon Dioxide 22 mmol/L (22.0-30.0); Glucose 88 mg/dl (74-100); Total Protein,Serum 7.2 g/dl (6.3-8.2)
[2022-08-27 21:45] LABS: C-Reactive Protein 2.1 mg/L (0-4)
[2022-08-27 22:03] LABS: Procalcitonin 0.042 ng/mL (0.0-2.0)
[2022-08-27 22:05] LABS: Erythrocyte Sedimentation Rate 23 mm/hr (0-20)
[2022-08-27 22:17] VITALS: BP 129/74; PULSE 80; RESP 16; TEMP 36.9; O2SAT 97
== END 2022-08-27 22:19 | disposition home or self-care (01) ==
PROVIDERS: Emergency Provider Emergency Medicine; PCP Family Medicine
DX: R06.9 Unspecified abnormalities of breathing (principal); R53.82 Chronic fatigue, unspecified; R51.9 Headache, unspecified; Z20.822 Contact with and (suspected) exposure to COVID-19; F17.210 Nicotine dependence, cigarettes, uncomplicated; Z79.51 Long term (current) use of inhaled steroids; Z79.52 Long term (current) use of systemic steroids; Z79.899 Other long term (current) drug therapy; Z91.048 Other nonmedicinal substance allergy status
CPT/HCPCS: 71046; 80053; 84145; 85025; 85651; 86140; 99213; C9803; G0463; U0003; U0005

== ENCOUNTER → 2022-09-04 11:30 | Outpatient (CLI) | payer OTHER, SELFPAY ==
--- NOTE | 2022-09-04 11:35 | XR_ITS ---
FINAL REPORT TECHNIQUE: Chest PA & Lateral CLINICAL HISTORY: BRONCHITIS COMPARISON: August 27, 2022 FINDINGS: 2 views of the chest were performed. The heart size is normal. The mediastinum is within normal limits. There is no acute cardiopulmonary process. There are no pleural effusions. There is no pneumothorax. The bony thorax appears intact. IMPRESSION: No acute cardiopulmonary process. Reviewed, Interpreted and Dictated by Jordi Mi MD Transcribed by Jeremie Dick Authenticated and [facility]
== END ==
PROVIDERS: PCP Physician Assistant; Visit Provider Physician Assistant
DX: J40 Bronchitis, not specified as acute or chronic (principal)
CPT/HCPCS: 71046

== ENCOUNTER → 2022-09-10 15:05 | Outpatient (CLI) | payer OTHER, SELFPAY ==
[2022-09-10 15:47] LABS: Adenovirus,PCR Not Detected (NotDetected); Bordetella Pertussis Not Detected (NotDetected); Chlamydophila Pneumoniae, PCR Not Detected (NotDetected); Coronavirus 19, PCR Not Detected (NotDetected); Coronavirus 229E Not Detected (NotDetected); Coronavirus NL63 Not Detected (NotDetected); Coronavirus OC43 Not Detected (NotDetected); Coronovirus HKU1,PCR Not Detected (NotDetected); Human Metapneumovirus Not Detected (NotDetected); Influenza A, PCR Not Detected (NotDetected); Influenza AH1, 2009 Not Detected (NotDetected); Influenza AH1, PCR Not Detected (NotDetected); Influenza AH3,PCR Not Detected (NotDetected); Influenza B, PCR Not Detected (NotDetected); Mycoplasma Pneumoniae, PCR Not Detected (NotDetected); Parainfluenza 1, PCR Not Detected (NotDetected); Parainfluenza 2, PCR Not Detected (NotDetected); Parainfluenza 3, PCR Not Detected (NotDetected); Parainfluenza 4, PCR Not Detected (NotDetected); Respiratory Syncytial Virus Not Detected (NotDetected); Rhinovirus/Enterovirus Not Detected (NotDetected)
[2022-09-10 16:05] LABS: Basophils # 0.1 K/mm3 (0-0.2); Basophils % 0.3 % (0.1-2.0); Eosinophils % 0.2 % (0.1-12.0); Hematocrit 45.7 % (37.0-47.0); Lymphocytes % 11.9 % (10-50); Mean Corpuscular HGB Conc 32.9 g/dL (31.8-35.4); Mean Corpuscular Hemoglobin 29.9 pg (27.0-31.2); Mean Corpuscular Volume 90.9 fl (81-99); Monocytes # 0.5 K/mm3 (0.1-1.0); Monocytes % 2.8 % (1.7-9.3); Neutrophils # 14.6 K/mm3 (1.8-7.8); Neutrophils % 84.9 % (37.0-80.0); Platelet Count 290 K/mm3 (142-424); Red Blood Count 5.03 M/mm3 (4.20-5.40); Red Cell Distribution Width 13.7 % (11.5-17.5); White Blood Count 17.2 K/mm3 (4.8-10.8)
[2022-09-10 16:07] LABS: MANUAL DIFFERENTIAL MANUAL DIFFERENTIAL (MANUAL DIFF)
[2022-09-10 17:33] LABS: Lymphocytes % 18 % (10-50); Monocytes % 2 % (2-9); Neutrophils % 80 % (42-76); Platelet Estimate Normal; RBC Morphology Normal; Total Cells Counted 100
== END ==
PROVIDERS: PCP Family Medicine; Visit Provider Physician Assistant
DX: Z20.822 Contact with and (suspected) exposure to COVID-19 (principal)
CPT/HCPCS: 85007; 85025; 87581; 87632; 87798; C9803; U0003; U0005

== ENCOUNTER → 2022-09-11 10:01 | Outpatient (CLI) | payer OTHER, SELFPAY | PROVIDERS: PCP Physician Assistant; Visit Provider Physician Assistant | DX: R07.89 Other chest pain (principal) | CPT/HCPCS: 94060; 94726; 94729 ==

== ENCOUNTER 2023-08-11 10:46 | Emergency (ER) | payer SELFPAY ==
--- NOTE | 2023-08-11 11:02 | EXP.UTC ---
Discharge Plan Disposition Patient Disposition: Home, Self-Care Condition: Good Prescriptions Prescriptions: New methylprednisolone 4 mg Tablets,Dose Pack 4 mg PO DIRECTED Qty: 21 0RF methocarbamol 500 mg tablet 500 mg PO TID PRN (Reason: back pain) Qty: 20 0RF No Action buspirone 10 mg tablet 10 mg PO BID sertraline 25 MG tablet 25 mg PO DAILY cyclobenzaprine 10 mg tablet 10 mg PO NEEDED PRN (Reason: Pain) Patient Comments: TAKE 1 TABLET BY MOUTH ONCE DAILY AT BEDTIME NEEDED Referrals Follow up/Referrals: Callum Cortez MD [Primary Care Provider] - See instructions Activity Restrictions/Add. Instructions Additional Instructions/Restrictions: Go home and rest. It would be best if you rested tomorrow too. No heavy lifting. No twisting. Take the oral medications as directed. The muscle relaxer (robaxin) will make you drowsy, so don't drive or operate heavy machinery after taking it. Don't start the oral steroids (medrol dose pack) until tomorrow, since you had the shots in here today. Follow up with your regular doctor. GO TO THE ER FOR ANY WORSENING SYMPTOMS OR CONCERN, ESPECIALLY BOWEL OR BLADDER ISSUES, SADDLE AREA NUMBNESS, FEVER, ETC Clinical Impressions Clinical Impression: Low back pain Instructions Patient Instructions: Low Back Pain, DI for Low Back Pain, Methocarbamol, Methylprednisolone Discharge ED Provider: Jorje Patel [facility] General Stated complaint: lower back/abd pain Time Seen by Provider: 08/11/23 11:02 History of Present Illness Provider Complaint: She states that for the past 2 weeks she has had low back pain that radiates down her right leg. She denies any falls or recent trauma. Related Data Home Medications Medication Instructions Recorded Confirmed sertraline 25 mg tablet 25 mg PO DAILY anxiety/depression 05/12/20 08/11/23 buspirone 10 mg tablet 10 mg PO BID 08/06/21 08/11/23 cyclobenzaprine 10 mg tablet 10 mg PO NEEDED PRN Pain 08/11/23 08/11/23 Previous Rx's Medication Instructions Recorded methocarbamol 500 mg tablet 500 mg PO TID PRN back pain #20 08/11/23 tabs methylprednisolone 4 mg tablets in 4 mg PO DIRECTED #21 tabs 08/11/23 a dose pack Allergies Allergy/AdvReac Type Severity Reaction Status Date / Time nickel Allergy Unknown Hives Verified 08/11/23 11:56 [facility] Disclaimer: The information contained in this section may have been updated after the patient was seen, as this information can be updated by other users. Social History Smoking Status: Current every day smoker tobacco type: cigarettes packs per day: 1 alcohol intake: never substance use type: former substance user current occupational status: employed Travel in the last 8 weeks: None ROS Obtained: Yes All systems reviewed & no additional complaints except as documented Constitutional Constitutional: Denies chills and Denies fever(s) Eyes Eyes: Denies eye discharge ENT Ears, Nose, Mouth, and Throat: Denies dizziness, Denies otalgia and Denies sore throat Cardiovascular Cardiovascular: Denies chest pain Respiratory Respiratory: Denies shortness of breath, Denies chest congestion, Denies cough, Denies stridor and Denies wheezing Gastrointestinal Gastrointestingal: Denies nausea or vomiting Musculoskeletal Musculoskeletal: Reports as per HPI and Reports back pain Integumentary/Breasts Skin/Breast: Denies rash Neurologic Neurologic: Denies dizziness and Denies paresthesias Allergic/Immunologic Allergic/Immunologic: Denies wheezing Physical Exam General General appearance: alert and in no apparent distress Head Head exam: atraumatic, normocephalic and normal inspection Eye Eye exam: Present normal appearance, PERRL and EOMI ENT ENT exam: Present normal exam, normal oropharynx, mucous membranes moist, TM's normal bilaterally and normal siebel developer
[2023-08-11 11:08] LABS: Microscopic, Urine URINE MICROSCOPIC (MICROSCOPIC)
[2023-08-11 11:10] VITALS: BP 142/95; PULSE 81; RESP 18; TEMP 36.7; O2SAT 100; BMI 27.4
[2023-08-11 11:13] LABS: Appearance,Urine CLEAR (Clear); Bilirubin,Urine Negative (Negative); Blood, Urine TRACE-I (Negative); Color,Urine YELLOW (Yellow); Glucose,Urine (UA) Negative (Negative); Ketones,Urine Negative (Negative); Leukocyte Esterase,Urine Negative (Negative); Nitrate,Urine Negative (Negative); Protein,Urine Negative (Negative); Specific Gravity, Urine 1.025 (1.005-1.030); Urobilinogen,Urine 0.2 EU/dl (0.2)
--- NOTE | 2023-08-11 11:20 | XR_ITS ---
FINAL REPORT CLINICAL HISTORY: low back pain for the past 4 weeks,no known injury FINDINGS: LUMBAR SPINE Five views demonstrate no acute fracture. There are mild degenerative changes. There is no malalignment. IMPRESSION: No acute process. Reviewed, Interpreted and Dictated by Fred Shin III, MD Transcribed by Ivy Yanez Authenticated and [facility]
[2023-08-11 11:25] LABS: RBC,Urine Occasional #/hpf (0-3); Squamous Epithelial Cell,Urine Occasional #/hpf (0-5)
[2023-08-11 12:26] VITALS: BP 142/95; PULSE 81; RESP 18; TEMP 36.7; O2SAT 100
== END 2023-08-11 12:26 | disposition home or self-care (01) ==
PROVIDERS: Emergency Provider Nurse Practitioner Family; PCP Family Medicine
DX: M54.50 Low back pain, unspecified (principal); B96.29 Other Escherichia coli [E. coli] as the cause of diseases classified elsewhere; F17.210 Nicotine dependence, cigarettes, uncomplicated
CPT/HCPCS: 72110; 81001; 87086; 96372; 99212; 99214; G0463

== ENCOUNTER 2023-11-20 15:36 | Emergency (ER) | payer OTHER, SELFPAY ==
[2023-11-20 15:36] VITALS: BP 150/99; PULSE 77; RESP 18; TEMP 36.7; O2SAT 98; BMI 27.9
[2023-11-20 16:00] VITALS: BP 153/86; PULSE 79; O2SAT 98
--- NOTE | 2023-11-20 16:12 | US_ITS ---
PROCEDURE INFORMATION: Exam: US Pelvis, Transvaginal Exam date and time: 11/20/2023 4:21 PM Age: 28 years old Clinical indication: Pelvic pain; Additional info: Severe L pelvic pain TECHNIQUE: Imaging protocol: Real-time transvaginal pelvic ultrasound with image documentation. Transvaginal imaging was used for better evaluation of the endometrium, adnexa, and/or cervix. COMPARISON: US TRANSVAGINAL 09/19/2019 2:36 PM FINDINGS: Uterus: The uterus measures 7.1 x 5.2 x 6.0 cm. The endometrium is 1.2 cm. Right ovary/adnexa: The right ovary measures 2.9 x 3.2 x 1.8 cm. There is normal vascular flow to the right ovary. Left ovary/adnexa: The left ovary measures 2.8 x 2.3 x 1.4 cm. There is normal vascular flow to the left ovary. Intraperitoneal space: No free fluid. IMPRESSION: Unremarkable pelvic ultrasound. Normal vascular flow to both ovaries.
--- NOTE | 2023-11-20 16:23 | HMH.EDGENADL ---
Discharge Plan Disposition Patient Disposition: Home, Self-Care Condition: Good Prescriptions Prescriptions: New naproxen 500 mg tablet 500 mg PO BID PRN (Reason: pain) Qty: 20 0RF No Action buspirone 10 mg tablet 10 mg PO BID sertraline 25 MG tablet 25 mg PO DAILY cyclobenzaprine 10 mg tablet 10 mg PO NEEDED PRN (Reason: Pain) Patient Comments: TAKE 1 TABLET BY MOUTH ONCE DAILY AT BEDTIME NEEDED methylprednisolone 4 mg Tablets,Dose Pack 4 mg PO DIRECTED Qty: 21 0RF methocarbamol 500 mg tablet 500 mg PO TID PRN (Reason: back pain) Qty: 20 0RF Referrals Follow up/Referrals: Callum Cortez MD [Primary Care Provider] - See instructions Activity Restrictions/Add. Instructions Additional Instructions/Restrictions: You were evaluated in the emergency department today. Please keep your follow-up with HEADING PINNER and see them as soon as possible. wastewater supervisor your prescription for medication and take as needed for pain. You may also take Tylenol. Return to the emergency department for new or worsening symptoms. Clinical Impressions Clinical Impression: Pelvic pain, Polycystic ovaries Instructions Patient Instructions: DI for Acute Pain -- Adult, DI for Pelvic Pain Discharge ED Provider: Ashly Casey General Adult HPI General Chief complaint: PAIN Stated complaint: pelvic and back pain Time Seen by Provider: 11/20/23 15:42 Mode of Arrival: Ambulatory Source of Information: Patient Limitations: No Limitations Description of Symptoms (Recalled from ER Triage Doc. by RN): Patient states she has been having pelvic pain since May was diagnosed with bilateral cyst on ovaries but has been unable to follow up with keller machine operator. Patient reports she has been bleeding in between periods. History of Present Illness HPI narrative: This patient is a 28-year-old female with history of chronic pelvic pain and ovarian cyst presenting to the emergency department for evaluation with concern for acute worsening of her pelvic pain. She states that for the last few days, pain in her left lower quadrant has been severe. It acutely worsened since last night. She has an OB appointment on Thursday, but she is unable to make it until then because the pain is severe. She has not previously ibuprofen had helped, but it only helped for short period of time. No other concerns noted, such as fevers, chills, nausea, vomiting, abnormal vaginal discharge, vaginal itching, dysuria, or other concerns. No changes in bowel movements. Last menstrual period was on 11/06 and she denies any concern she could be . Related Data Home Medications Medication Instructions Recorded Confirmed sertraline 25 mg tablet 25 mg PO DAILY anxiety/depression 05/12/20 08/11/23 buspirone 10 mg tablet 10 mg PO BID 08/06/21 08/11/23 cyclobenzaprine 10 mg tablet 10 mg PO NEEDED PRN Pain 08/11/23 08/11/23 Previous Rx's Medication Instructions Recorded methocarbamol 500 mg tablet 500 mg PO TID PRN back pain #20 08/11/23 tabs methylprednisolone 4 mg tablets in 4 mg PO DIRECTED #21 tabs 08/11/23 a dose pack naproxen 500 mg tablet 500 mg PO BID PRN pain #20 tabs 11/20/23 Allergies Allergy/AdvReac Type Severity Reaction Status Date / Time nickel Allergy Unknown Hives Verified 08/11/23 11:56 [facility] Disclaimer: The information contained in this section may have been updated after the patient was seen, as this information can be updated by other users. Social History Smoking Status: Current every day smoker tobacco type: cigarettes packs per day: 1 alcohol intake: never substance use type: former substance user current occupational status: employed Travel in the last 8 weeks: None ROS Obtained: Yes All systems reviewed & no additional complaints except as documented Physical Exam General General appearance: alert and in no apparent distress Head Head exam: atraumatic and normocephalic Eye Eye exam: Present normal appearance, PERRL and EOMI ENT ENT exam: Present normal exam, normal oropharynx, mucous membranes moist and normal external ear exam Neck Neck exam: Present normal inspection, full ROM and trachea midline; Absent tenderness Chest Chest inspection: Present normal inspection and symmetric chest wall rise; Absent tenderness Respiratory Respiratory exam: Present normal lung sounds bilaterally; Absent respiratory distress, wheezes, stridor or accessory muscle use Cardiovascular Cardiovascular exam: Present regular rate and normal rhythm Abdominal Exam Abdominal exam: Present soft, tenderness (Suprapubic, left lower quadrant) and normal bowel sounds; Absent distention, guarding, rebound or rigidity Extremities Exam Extremities exam: Present normal inspection, full ROM and normal capillary refill; Absent tenderness or edema Back Exam Back exam: Present normal inspection and full ROM; Absent tenderness Neurological Exam Neurological exam: Present alert, oriented X3, CN II-XII intact and normal gait; Absent motor sensory deficit Psychiatric Psychiatric exam: Present normal affect and normal mood Skin Skin exam: Present warm and dry Medical Decision Making Medical Records Medical records reviewed: Yes I reviewed the patient's medical records. Alberto Inquiry Pt receiving controlled substance: No Vital Signs: 11/20/23 15:36 11/20/23 16:00 11/20/23 17:05 Temperature 98.1 F Temperature Source Oral Pulse Rate 79 66 Pulse Rate [Right] 77 Respiratory Rate 18 Blood Pressure 153/86 H Blood Pressure [Right Arm] 150/99 H Blood Pressure Mean 108 Blood Pressure Mean [Right Arm] 116 Blood Pressure Source [Right Arm] Automatic Cuff 02 Sat by Pulse Oximetry 98 98 98 Oxygen Delivery Method Room Air Room Air Room Air 11/20/23 17:20 11/20/23 18:19 Temperature 98.2 F Temperature Source Oral Pulse Rate 64 78 Pulse Rate [Right] Respiratory Rate 18 18 Blood Pressure 142/94 H 126/84 Blood Pressure [Right Arm] Blood Pressure Mean 112 Blood Pressure Mean [Right Arm] Blood Pressure Source [Right Arm] 02 Sat by Pulse Oximetry 98 Oxygen Delivery Method Room Air Lab Data Lab results reviewed: Yes I reviewed the patient's lab results. Lab Results 11/20/23 16:55: WBC 7.0, RBC 4.90, Hgb 15.2, Hct 43.9, MCV 89.6, MCH 31.0, MCHC 34.6, RDW 13.0, Plt Count 195, MPV 9.2, Neut % (Auto) 64.5, Lymph % (Auto) 29.0, [place] % (Auto) 5.1, Eos % (Auto) 0.8, Baso % (Auto) 0.6, Neut # (Auto) 4.5, Lymph # (Auto) 2.0, [place] # (Auto) 0.4, Eos # (Auto) 0.1, Baso # (Auto) 0.0, Sodium 139, Potassium 3.6, Chloride 110 H, Carbon Dioxide 20 L, Anion Gap 12.6, BUN 9, Creatinine 0.60, Estimated Creat Clear 165, Estimated GFR 117, Est GFR ( Amer) 142, Glucose 109 H, Calcium 8.6, Total Bilirubin 0.4, AST 54 H, ALT 54, Alkaline Phosphatase 56, Total Protein 7.0, Albumin 4.0, Globulin 3.0, Albumin/Globulin Ratio 1.3, Serum HCG, Qual Negative 11/20/23 17:03: Urine Color Yellow, Urine Appearance Turbid, Urine pH 6.5, Ur Specific [place] >= 1.030, Urine Protein 1+, Urine Glucose (UA) Negative, Urine Ketones Trace, Urine Blood 3+, Urine Nitrate Negative, Urine Bilirubin 1+ A, Urine Urobilinogen 1.0, Ur Leukocyte Esterase Negative, Urine RBC 5-10, Urine WBC None, Ur Squamous Epith Cells 3-5, Amorphous Sediment 2+ 11/20/23 16:55 11/20/23 16:55 Orders (Tests/Meds): ED MEDICATIONS Discontinued Medications Generic Name Dose Route Start Last Admin Trade Name Freq PRN Reason Stop Dose Admin Acetaminophen 1,000 mg 11/20/23 16:12 11/20/23 17:09 Acetaminophen 1,000mg/100ml Vial IV 11/20/23 16:13 1,000 mg ONCE ONE Administration Ketorolac Tromethamine 15 mg 11/20/23 16:12 11/20/23 17:09 Ketorolac 30mg/Ml Vial IV 11/20/23 16:13 15 mg ONCE ONE Administration ORDERS Category Date Time Status US transvaginal Stat Exams 11/20/23 16:12 Completed Complete Blood Count Auto Diff Stat Lab 11/20/23 16:55 Completed Comprehensive Metabolic Panel Stat Lab 11/20/23 16:55 Completed HCG Qualitative, Serum Stat Lab 11/20/23 16:55 Completed Urinalysis and Microscopic Stat Lab 11/20/23 17:03 Completed Medical Decision Narrative: In summary, this patient is a 28-year-old female presenting to the Emergency Department for evaluation of left lower quadrant abdominal/pelvic pain. Differential diagnoses considered include but are not limited to ovarian cyst, ovarian torsion, constipation, colitis, cystitis, ectopic , endometriosis, uterine fibroid. Ruling out the most morbid conditions drove assessment. On exam, the patient is in no acute distress. Abdominal exam is benign with exception of mild left lower quadrant tenderness. Workup included CBC, CMP, urinalysis, serum test, and transvaginal ultrasound. She was given a bolus of IV fluids as well as IV Toradol and acetaminophen for symptomatic improvement. I independently interpreted ultrasound prior to the radiologist read and noted polycystic ovaries without torsion or other concerns. Please see their read for final interpretation. Labs were obtained that demonstrated no acutely concerning abnormalities at this time. On reassessment, patient had good improvement after administration of event as above. At this time, feel she is appropriate for discharge with instructions to follow-up closely with her HEADING PINNER and strict return precautions. She was given prescription for naproxen and instructions for supportive management. She was discharged in stable condition.. Critical Care Critical Care Time Critical Care Time: No
[2023-11-20 17:05] VITALS: PULSE 66; O2SAT 98
[2023-11-20] MEDS: KETOROLAC 30MG/ML VIAL 15 MG IV (17:09)
[2023-11-20] MEDS: ACETAMINOPHEN 1,000MG/100ML VIAL 1000 MG IV (17:09)
[2023-11-20 17:10] LABS: Basophils % 0.6 % (0.1-2.0); Eosinophils # 0.1 K/mm3 (0.0-0.4); Eosinophils % 0.8 % (0.1-12.0); Hematocrit 43.9 % (37.0-47.0); Hemoglobin 15.2 g/dL (12.2-16.2); Mean Corpuscular HGB Conc 34.6 g/dL (31.8-35.4); Mean Corpuscular Volume 89.6 fl (81-99); Mean Platelet Volume 9.2 fl (7.4-10.4); Monocytes # 0.4 K/mm3 (0.1-1.0); Monocytes % 5.1 % (1.7-9.3); Neutrophils # 4.5 K/mm3 (1.8-7.8); Neutrophils % 64.5 % (37.0-80.0); Platelet Count 195 K/mm3 (142-424)
[2023-11-20 17:17] LABS: Chloride 110 mmol/L (98-107); Sodium 139 mmol/L (136-145)
[2023-11-20 17:18] LABS: Potassium 3.6 mmoL/L (3.5-5.1)
[2023-11-20 17:20] VITALS: BP 142/94; PULSE 64; RESP 18; O2SAT 98
[2023-11-20 17:20] LABS: Alanine Aminotransferase 54 U/L (12-78); Albumin/Globulin Ratio 1.3 (1.1-1.8); Alkaline Phosphatase 56 U/L (38-126); Anion Gap 12.6 mEq/L (5-15); Aspartate Amino Transferase 54 U/L (14-36); Bilirubin,Total 0.4 mg/dl (0.2-1.3); Blood Urea Nitrogen 9 mg/dl (7-17); Carbon Dioxide 20 mmol/L (22.0-30.0); Creatinine Clearance Estimated 165 mL/min (50-200); Estimated Glomerular Filt Rate 117 ml/min (>60); GFR (African American) 142 ML/MIN (>60)
[2023-11-20 17:21] LABS: Calcium 8.6 mg/dl (8.4-10.2); Glucose 109 mg/dl (74-100)
[2023-11-20 17:37] LABS: HCG Qualitative, Serum Negative (Negative)
[2023-11-20 18:05] LABS: Microscopic, Urine URINE MICROSCOPIC (MICROSCOPIC)
[2023-11-20 18:10] LABS: Appearance,Urine TURBID (Clear); Blood, Urine 3+ (Negative); Color,Urine YELLOW (Yellow); Glucose,Urine (UA) Negative (Negative); Ketones,Urine TRACE (Negative); Leukocyte Esterase,Urine Negative (Negative); Nitrate,Urine Negative (Negative); PH,Urine 6.5 (5.0-8.5); Protein,Urine 1+ (Negative); Specific Gravity, Urine >= 1.030 (1.005-1.030)
[2023-11-20 18:19] VITALS: BP 126/84; PULSE 78; RESP 18; TEMP 36.8; O2SAT 99
[2023-11-20 18:33] LABS: Bilirubin,Urine 1+ (Negative)
[2023-11-20 18:40] LABS: Amorphous Sediment,Urine 2+ /lpf
[2023-11-24 05:24] LABS: Neisseria gonorrhoeae, NAA Negative (Negative)
== END 2023-11-20 18:20 | disposition home or self-care (01) ==
PROVIDERS: Emergency Provider Emergency Medicine; PCP Family Medicine
DX: R10.2 Pelvic and perineal pain (principal); R10.32 Left lower quadrant pain; N83.201 Unspecified ovarian cyst, right side; N83.202 Unspecified ovarian cyst, left side; F17.210 Nicotine dependence, cigarettes, uncomplicated
CPT/HCPCS: 76830; 80053; 81001; 84703; 85025; 87491; 87591; 96374; 96375; 99285; J0131

== ENCOUNTER 2025-05-10 15:03 | Outpatient (CLI) | payer OTHER, SELFPAY ==
--- OUTSIDE RECORDS SUMMARY | 2024-10-14 07:15 | XMS_ITS ---
Author Organization Leann Address [address] [facility] [address] [place] [id number] Care Team Providers Care Type Mapper Name Role Phone Georgia Cortez Primary Care Provider Jessica Arteaga Unavailable [phone] Allergies No Known Allergies REASON FOR VISIT [...] Provider Diagnosis Leann [address] [facility] [address] [place] [id number] 10/14/2024 Jessica Arteaga Anxiety with depress ion [...] * STANISLAV LEIGHOB: 3 (30 yo F)Acc No.[id number]:10/14/2024 Progress Notes Patient: GARRETT TOURE Provider: DEEPAK Hooker :1995 A ge:29 Y S ex:Female Date:10/14/2024 Address:[facility] [place], [id number] Pcp:Georgia Cortez Subjective: * Chief Complaints: * [...] Diagno stic Procedure: H ER-sore throat 12/20/08, [facility] ER-numbness in arms and legs 05/13/2020. [...] * Images: Billing Information: * Visit Code: 60274 Office Visit, Est Pt., Level 2. * Procedure Codes: * Electronic signature of DEEPAK Byrd on 05/10/2025 at 03:05 PM EDT Sign off status: Pending * Provider: DEEPAK Hooker Date: 1 12/15/2023 Generated for Jimenez wheeler/Sarahy/Nelly on: 0 05/10/2025 03:05 PM EDT History and Physical Notes * HPI (History [...]
--- OUTSIDE RECORDS SUMMARY | 2025-04-06 06:30 | XMS_ITS ---
Author Organization [facility] [address] [facility] [address] [place] [phone] Care Team Providers Care Filling Machine Operator Name Role Phone Georgia Cortez Primary Care Provider [phone] Jessica Arteaga Unavailable [phone] Allergies No Known Allergies Reason For Referral Diagnosis 1 Reducible umbilical hernia (K42.9) [facility] Referring Provider First Name Jessica Referring Provider Last Name Jneni Referring Provider Speciality Physician Epic Ambulatory Analysts Referred Provider Specialty General Surg mandy General [...] HCl 50 MG TAKE 1 TABLET BY [facility] DAILY; Duration: 30 Active Social History Tobacco [...] 04/06/2025 Encounters Encounter Location Date Provider Diagnosis [facility] [address] [facility] [address] [place] [phone] 04/06/2025 Jessica Arteaga Reducible umbilical hernia K42.9 [...] * STANISLAV LEIGHOB: 3 (30 yo F)Acc No.[id number]:04/06/2025 Progress Notes Patient: LYDIA TOURE Provider: DEEPAK Hooker :1995 A ge:29 Y S ex:Female Date:04/06/2025 Address:[facility] [address], [facility] Pcp:Georgia Cortez Subjective: * Chief Complaints: * [...] Diagno stic Procedure: H ER-sore throat 12/20/08, [facility] ER-numbness in arms and legs 05/13/2020. [...] hernia - K42.9 (Primary) 2 . B [place] 29.0-29.9,adult - Z68.29 Plan: * Treatment: * Procedure Codes: G 8420 BMI<30 AND >=22 CALC & DOCU, G8783 BP SCR PRFRM RCMDD DEFIND SCR INTVL, G8752 MOST RECENT SYSTOLIC BP < 140MM HG, G8754 MOST RECENT DIASTOLIC BP < 90MM HG * Follow Up: w ith surgeon * Images: Billing Information: * Visit Code: 95749 Office Visit, Est Pt., Level 3. * Procedure Codes: G8420 BMI<30 AND >=22 CALC & DOCU. G8783 BP SCR PRFRM RCMDD DEFIND SCR INTVL. G8752 MOST RECENT SYSTOLIC BP < 140MM HG. G8754 MOST RECENT DIASTOLIC BP < 90MM HG. * Electronic signature of DEEPAK Byrd on 05/10/2025 at 03:06 PM EDT Sign off status: Pending * Provider: DEEPAK Hooker Date: 0 04/06/2025 Generated for Kirstyi summer/Sarahy/eTransmitting on: 0 05/10/2025 03:06 PM EDT History and Physical Notes * [...]
--- OUTSIDE RECORDS SUMMARY | 2025-05-10 15:06 | XMS_ITS | Patient Health Record ---
Author Organization [facility] Address [address] [place] [id number] Care Team Providers Care Loss Prevention Analyst Name Role Phone Georgia Cortez Primary Care Provider Jessica Arteaga Unavailable [phone] Allergies No Known Allergies Medications Medication SIG (Take, Route, Fr equency, Duration) Notes Start Date End Date Status Sertraline HCl 50 MG 1 tablet Orally Onc e a day; Duration: 30 days Active busPIRone HCl 10 MG 1 tab(s) orally Two times a day; Duration: 30 days Active Immunizations Vaccine Route Administration Date Status Comme nts xGardasil IM Intramuscular 05/30/2009 Administered xGardasil IM Intramuscular 09/24/2009 Administered xGardasil IM Intramuscular 12/06/2009 Administered MMR Unknown 07/31/1994 Administered MMR Unknown 05/29/1997 Administered Social History Tobacco Use: Social History Observation Description Date Smoking Status WARNING: Information temporarily unavailable CURRENT TOBACCO USE: Question Answer Notes Are you a: smokes one ppd Problems Problem Type SNOMED Code ICD Code Onset Dates Problem Status W/U Status Risk Notes Problem Tachycardia (0060704) Tachycardia (R00.0) Active confirmed Problem Anxiety (88893000) Anxiety (F41.9) Active confirmed Problem Generalized anxiety disorder (29485084) Generalized anxiety disorder (F41.1) Active confirmed Problem Cyst of uterine adnexa (38034400841982) Adnexal cyst (N94.9) Active confirmed Problem Anxiety depression (011862920) Anxiety with depression (F41.8) Active confirmed Problem Panic disorder (572276134) Panic disorder [episodic paroxysmal anxiety] (F41.0) Active confirmed Vital Signs Heart Rate 73 /min 04/06/2025 Blood pressure diastolic 80 mm Hg 04/06/2025 Height 63.5 in 04/06/2025 Blood pressure systolic 130 mm Hg 04/06/2025 Weight 172.0 lbs 04/06/2025 BMI 29.99 kg/m2 04/06/2025 Encounters Encounter Location Date Provider Diagnosis [facility] [address] [facility] [address] [facility] [address] [place], [place] [id number] 10/14/2024 Jessica Laragunjan Anxiety with depression F41.8 [facility] [address] [facility] [address] [facility] [address] [place], [place] [id number] 04/06/2025 Jessica Crowdy Reducible umbilical hernia K42.9 and BMI 29.0-29.9,adult Z68.29 [facility] [address] [facility] [address] [facility] [address] [place], [place] [id number] 12/07/2024 Georgia Cortez Anxiety with depression F41.8 [facility] [address] [facility] [address] [facility] [address] [place], [place] [id number] 02/17/2025 Georgia Cortez [facility] [address] [facility] [address] [facility] [address] [place], [place] [id number] 04/17/2025 Georgia Cortez [facility] [address] [facility] [address] [facility] [address] [place], [place] [id number] 05/10/2025 Georgia Cortez Anxiety with depression F41.8 Assessments Encounter Date Diagnosis (ICD Code) Assessment Notes Treatment Notes Treatment Clinical Notes Section Notes 10/14/2024 Anxiety with depression (ICD-10 - F41.8) 12/07/2024 Anxiety with depression (ICD-10 - F41.8) 04/06/2025 BMI 29.0-29.9,adult (ICD-10 - Z68.29) 04/06/2025 Reducible umbilical hernia (ICD-10 - K42.9) 05/10/2025 Anxiety with depression (ICD-10 - F41.8) Plan Of Treatment Pending Test Test Name Order Date Pulmonary Function Complete 09/04/2022 Insurance Providers Payer Name Payer Address Payer Phone Subscriber Number Group Number Insured Name Patient Relationship to Insured Coverage Start Date Coverage End Date AETNA [facility] [address] [place], [place] [id number] GARRETT LEIGH Self - patient is the insured Medications Administered Medication Instructions Date of Administration Dosage Notes Dexamethasone 06/15/2023 1 mL phenergan 25 mg/ml 07/27/2018 25 mg Medical (General) History Surgical History Surgery Date(Month/Year) tooth removed Hospitalization History Reason Date(Month/Year) [facility] ER-numbness in arms and legs 05/13/20 [facility] ER-sore throat 12/20/08
--- OUTSIDE RECORDS SUMMARY | 2025-05-10 15:06 | XMS_ITS | Clinical Summary ---
Author Organization [facility] Address [address] [place] [address] Care Team Providers Care Ship Unloader Name Role Phone Fox Cortez Primary Care Provider [phone] Allergies Active Allergy Reactions Criticality Noted Date Comments Nickel Hives Medium 08/11/2023 Medications busPIRone (Buspar) 10 MG tablet Take 1 tablet (10 mg) by mouth 3 (three) times a day. 05/07/2023 Active sertraline (Zoloft) 50 MG tablet Take 1 tablet (50 mg) by mouth 1 (one) time each day. 10/20/2023 Active Active Problems Problem Noted Date Diagnosed Date Missed 04/18/2024 Assessment & Plan (04/18/2024 3:56 PM EDT): - we discussed the 3 management options for a miscarriage. 1. Expectant management 2. Medical management with cytotec 3. Surgical management with dilation and curettage - She would like to proceed with suction D&C - scheduled for 04/19/24 - consents signed today - Rh positive - we discussed that 25% of pregnancies are miscarriages and ~ 50% of the time they are caused by genetic abnormalities - discussed that she can TTC after she has 1 normal period - RTC 2 weeks post-op Abscess, dental 11/23/2023 Acute anxiety 11/23/2023 Atypical chest pain 11/23/2023 Bronchitis 11/23/2023 Cough 11/23/2023 Leukocytosis 11/23/2023 Low back pain 11/23/2023 Muscle spasm 11/23/2023 Pelvic pain 11/23/2023 Polycystic ovaries 11/23/2023 Severe acute respiratory syn drome coronavirus 2 (SARS-CoV-2) antibody positive 11/23/2023 Resolved Problems Problem Noted Date Diagnosed Date Resolved Date Supervision of other normal , antepartum 04/07/2024 04/18/2024 Gestational diabetes mellitu s (GDM) in third trimester 11/25/2018 04/18/2024 Family History Medical History Relation Name Comments Asthma Brother No Known Problems Daughter Diabetes Father No Known Problems Father's Brother No Known Problems Father's Sister 1 No Known Problems Father's Sister 2 No Known Problems Maternal Grandfather No Known Problems Maternal Grandmother Lung cancer Mother No Known Problems Mother's Brother 1 No Known Problems Mother's Brother 2 No Known Problems Mother's Sister 1 No Known Problems Mother's Sister 2 No Known Problems Paternal Grandfather No Known Problems Paternal Grandmother No Known Problems Sister Relation Name Status Comments Brother Alive Daughter Alive Father Alive Father's Brother Father's Sister 1 Alive Father's Sister 2 Maternal Grandfather Maternal Grandmother Mother Mother's Brother 1 Alive Mother's Brother 2 Mother's Sister 1 Alive Mother's Sister 2 Paternal Grandfather Paternal Grandmother Sister Alive Social History Tobacco Use Types Packs/Day Years Used Date Smoking Tobacco: Every Day Cigarettes 1.9 16.5 Started: 2008 Smokeless Tobacco: Never Alcohol Use Standard Drinks/Week Comments Not Currently 0 (1 standard drink = 0.6 oz pur e alcohol) PHQ-2 Answer Date Recorded Patient Health Questionnaire-2 Score 0 04/18/2024 Comments No Sex and Gender Information Value Date Recorded Sex Assigned at Not on file Legal Sex Female 7:53 PM EDT Gender Identity Not on file Sexual Orientation Not on file Last Filed Vital Signs Vital Sign Reading Time Taken Comments Blood Pressure 124/76 04/18/2024 3:58 PM EDT Pulse 66 11/23/2023 3:33 PM EST Temperature 36.8 C (98.2 F) 11/23/2023 3:33 PM EST Respiratory Rate 17 04/18/2024 3:30 PM EDT Oxygen Saturation 100% 04/18/2024 3:30 PM EDT Inhaled Oxygen Concentration - - Weight 78.9 kg (174 lb) 04/18/2024 3:30 PM EDT Height 165.1 cm (5' 5 ) 04/07/2024 10:38 AM EDT Body Mass Index 28.96 04/07/2024 10:38 AM EDT Plan of Treatment Health Maintenance Due Date Last Done Comments [facility]-Infant/Child/Adol SDOH Screenings 1993 [facility]-IPV Vaccines (2 of 3 - 4-dose series) 06/26/1997 05/29/1997, 05/19/1994, 1993, Additional history exists [facility]-DTaP,Tdap,and Td Vaccines (6 - Tdap) 2004 05/29/1997, 07/31/1994, 1993, Additional history exists [facility]-Varicella Vaccines (1 of 2 - 13+ 2-dose series) 2006 HPV Vaccines (3 - 3-dose series) 02/28/2010 12/06/2009, 09/24/2009, 05/30/2009 [facility]- SDOH Screenings 2011 [facility]-Adult SDOH Screenings 2011 [facility]-Pneumococcal Vaccine: Pediatrics (0 to 5 Years) and At-Risk Patients (6 to 49 Years) (1 of 2 - PCV) 2012 NQV-HLTSD-37 Vaccine (1 - season) 2024 [facility]-Depression Screening 04/18/2025 04/18/2024 [facility]-Influenza Vaccine (#1) 2025 [facility]-Pap Smear 11/23/2026 11/23/2023 [facility]-Cervical Cancer Screening 11/23/2028 [facility]-HPV/Cotest 11/23/2028 11/23/2023 [facility]-Zoster Vaccines (1 of 2) 2043 [facility]-Hepatitis B Vaccines Completed 994, 1993, 1993 [facility]-HIB Vaccines Completed 07/31/1994, 04/1994, 1993, Additional history exists [facility]-HIV Screening Completed 04/07/2024 [facility]-Hepatitis C Screening Completed 04/07/2024 [facility]-Obesity Intervention Completed 024, 04/14/2024, 04/07/2024, Additional history exists [facility]-Hepatitis A Vaccines Aged Out No longer eligible based on patient's age to complete this topic [facility]-Rotavirus Vaccines Aged Out No lo nger eligible based on patient's age to complete this topic Procedures Procedure Name Priority Date/Time Associated Diagnosis Comments HEPATITIS C ANTIBODY W/REFLEX TO HCV QUANT PCR Routine 04/07/2024 11:16 AM EDT Missed period HIV 1/2 ANTIBODY/ANTIGEN SCREEN WITH REFLEX TO HIV I/II DIFFERENTIATION Routine 04/07/2024 11:16 AM EDT Missed period PAP TEST - CYTOLOGY Routine 11/23/2023 4 :36 PM EST Encounter for gynecological examination (general) (routine) with abnormal findings from Last 3 Months or Most Recently Relevant to Health Maintenance Results * HIV 1 & 2 Antibody/Antigen Screen (04/07/2024 11:16 AM EDT) HIV 1 & 2 Antibody/Antigen Screen Non Reactive Non Reactive 04/07/2024 1:50 PM EDT [facility] Comment:Screening for HIV 1 & 2 antibodies, and P24 antigen is NONREACTIVE. No confirmatory testing is required. Blood Venous blood specimen / Unknown Venipuncture / Unknown 04/07/2024 11:16 AM EDT 04/07/2024 12:41 PM EDT Mehreen Sanchez APRN, CNM LAB BLOOD ORDERABLE S Final Result [facility] [address] [place] [id number] * Hepatitis C Antibody w/Reflex to HCV Quant PCR (04/07/2024 11:16 AM EDT) Hepatitis C Antibody Negative Negative 04/07/2024 1:50 PM EDT [facility] Blood Venous blood specimen / Unknown Venipuncture / Unknown 04/07/2024 11:16 AM EDT 04/07/2024 12:41 PM EDT Mehreen Parekhney FLOOR SWEEPER, ASTON LAB BLOOD ORDERABLE S Final Result [facility] [address] [place] [address] * Pap Test (11/23/2023 4:36 PM EST) Case Report Cytology Case: [id number] Authorizing Provider: Janae Corona APRN, DNP Collected: 11/23/2023 1636 Ordering Location: Obstetrics & Gynecology Received: 11/24/2023 1132 First Screen: Mony Sanders Rescreen: Ivett Garvin Specimen: ThinPrep Pap Test, Liquid-Based Cervical/Vaginal 12/07/2023 4:25 PM EST [facility] Interpretation NEGATIVE FOR INTRAEPITHELIAL LESION OR MALIGNANCY 12/07/2023 4:25 PM EST [facility] at 1625 EST Specimen Adequacy Satisfactory for evaluation; endocervical/nixon sformation zone component present. Slide scanned and imaged by FTRANSPrep Imaging System with manual review of all selected mcnair. 12/07/2023 4:25 PM EST [facility] Cervical cytology is a screening test primarily for squamous cancers and precursors and has associated false negative and positive results. New technologies such as liquid based sampling may decrease but will not eliminate all false negative results. Regular screening and follow-up of unexplained clinical signs and symptoms are recommended to minimize false negative results. Please see the ASCCP website (www.asccp.org)fo r followup recommendations. If HPV testing was requested, correlation with the results is suggested (please call Microbiology at [phone] for results). 12/07/2023 4:25 PM EST [facility] Menstrual Status Cyclic 12/07/19 24 4:25 PM EST [facility] Contraceptive History Not Applicable 12/07/2023 4:25 PM EST [facility] Screening Type Routine Screen 2023 4:25 PM EST [facility] High Risk? No 12/07/2023 4:25 PM EST [facility] HPV Testing Requested? Request HPV Testing Regardless of Pap Test Findings 12/07/2023 4:25 PM EST [facility] Previous Cancer History No 12/07/2023 4:25 PM EST [facility] Clinical Information Z01.411 - Encounter for gynecological examination (general) (routine) with abnormal findings [ICD-10-CM] 12/07/2023 4:25 PM EST [facility] Last Menstrual Period 11/05/2023 12/07/2023 4:25 PM EST [facility] Swab Vaginal and cervical cytologic material / Unknown Non-blood Collection / Unknown 11/23/2023 4:36 PM EST 11/24/2023 11:32 AM EST us Janae Corona APRN, DNP LAB CYTOLOGY ORDERABLES Final Result [facility] [address] [place] [address] from Last 3 Months or Most Recently Relevant to Health Maintenance Advance Directives Documents on File Type Date Recorded Patient Customer Marketing Manager Expl anation Power of Office Assistance 11/23/2023 Care Teams Ship Unloader Relationship Specialty Start Date [place] [address] PCP - General 11/23/23
== END 2025-05-10 23:59 | disposition home or self-care (01) ==
LOC: LAB 15:03
PROVIDERS: PCP Family Medicine; Visit Provider Nurse Practitioner Obstetrics & Gynecology
DX: Z32.01 Encounter for pregnancy test, result positive (principal)
CPT/HCPCS: 36415; 84144; 84702

== ENCOUNTER 2025-06-01 09:15 | Outpatient (CLI) | payer OTHER, SELFPAY ==
--- OUTSIDE RECORDS SUMMARY | 2024-10-14 07:15 | XMS_ITS ---
Author Organization Leann Address [address] [facility] [address] [place] [phone] Care Team Providers Care Lower School Spanish Teacher Name Role Phone Georgia Cortez Primary Care Provider [phone] Jessica Arteaga Unavailable [phone] Allergies No Known Allergies REASON FOR VISIT [...] Provider Diagnosis Leann [address] [facility] [address] [place] [id number] 10/14/2024 Jessica Arteaga Anxiety with depress ion [...] * STANISLAV LEIGHOB: 3 (30 yo F)Acc No.[id number]:10/14/2024 Progress Notes Patient: GARRETT OTURE Provider: DEEPAK Hooker :1995 A ge:29 Y S ex:Female Date:10/14/2024 Address:[facility] [place], [id number] Pcp:Georgia Cortez Subjective: * Chief Complaints: * [...] Diagno stic Procedure: H ER-sore throat 12/20/08, [facility] ER-numbness in arms and legs 05/13/2020. [...] * Images: Billing Information: * Visit Code: 97854 Office Visit, Est Pt., Level 2. * Procedure Codes: * Electronic signature of DEEPAK Byrd on 06/02/2025 at 10:36 AM EDT Sign off status: Pending * Provider: DEEPAK Hooker Date: 1 12/15/2023 Generated for Jimenez wheeler/Sarahy/Nelly on: 0 06/02/2025 10:36 AM EDT History and Physical Notes * HPI [...]
--- OUTSIDE RECORDS SUMMARY | 2025-04-06 06:30 | XMS_ITS ---
Author Organization [facility] Address [address] [facility] 36 [facility] [address] [place] [phone] Care Team Providers Care Guest Services Attendant Name Role Phone Georgia Cortez Primary Care Provider Jessica Arteaga Unavailable [phone] Allergies No Known Allergies Reason For Referral Diagnosis 1 Reducible umbilical hernia (K42.9) Referral [facility] Referring Provider First Name Jessica Referring Provider Last Name Jenni Referring Provider Speciality Physician Radio Mechanic Referred Provider Specialty General Surg mandy General [...] HCl 50 MG TAKE 1 TABLET BY [facility] DAILY; Duration: 30 Active Social History Tobacco [...] 04/06/2025 Encounters Encounter Location Date Provider Diagnosis [facility] [address] [facility] [address] [place] [phone] 04/06/2025 Jessica Arteaga Reducible umbilical hernia K42.9 [...] * STANISLAV LEIGHOB: 3 (30 yo F)Acc No.[id number]:04/06/2025 Progress Notes Patient: LYDIA TOURE Provider: DEEPAK Hooker :1995 A ge:29 Y S ex:Female Date:04/06/2025 Address:[facility] [address] Pcp:Georgia Cortez Subjective: * Chief Complaints: * [...] Diagno stic Procedure: H ER-sore throat 12/20/08, [facility] ER-numbness in arms and legs 05/13/2020. * [...] hernia - K42.9 (Primary) [address] 29.0-29.9,adult - Z68.29 Plan: * Treatment: * Procedure Codes: G 8420 BMI<30 AND >=22 CALC & DOCU, G8783 BP SCR PRFRM RCMDD DEFIND SCR INTVL, G8752 MOST RECENT SYSTOLIC BP < 140MM HG, G8754 MOST RECENT DIASTOLIC BP < 90MM HG * Follow Up: w ith surgeon * Images: Billing Information: * Visit Code: 13542 Office Visit, Est Pt., Level 3. * [...] 04/06/2025 Generated for Kirstyi summer/Sarahy/eTransmitting on: 0 06/02/2025 10:36 AM EDT History [...]
--- OUTSIDE RECORDS SUMMARY | 2025-06-02 10:38 | XMS_ITS | Patient Health Record ---
Author [facility] Address [address] [place] [id number] Care Team Providers Care Supervisory Aide Name Role Phone Georgia Cortez Primary Care Provider Jessica Arteaga Unavailable [phone] Allergies No Known Allergies Medications Medication SIG [...] Status W/U Status Risk Notes Problem Tachycardia (0214469) Tachycardia (R00.0) Active confirmed Problem Anxiety (35638937) Anxiety (F41.9) Active confirmed Problem Generalized anxiety disorder (49101861) Generalized anxiety disorder (F41.1) Active confirmed Problem Cyst of uterine adnexa (09078010637933) Adnexal cyst (N94.9) Active confirmed Problem Anxiety depression (397094085) Anxiety with depression (F41.8) Active confirmed Problem Panic disorder (993766550) Panic disorder [episodic paroxysmal anxiety] (F41.0) Active confirmed Vital Signs Heart Rate 73 /min 04/06/2025 Blood pressure diastolic 80 mm Hg 04/06/2025 Height 63.5 in 04/06/2025 Blood pressure systolic 130 mm Hg 04/06/2025 Weight 172.0 lbs 04/06/2025 BMI 29.99 kg/m2 04/06/2025 Encounters Encounter Location Date Provider Diagnosis [facility] [address] [facility] [address] [facility] [address] [place], [place] [id number] 10/14/2024 Jessica Jenni Anxiety with depression F41.8 [facility] [address] [place], [place] [id number] 04/06/2025 Jessica Crowdy Reducible umbilical hernia K42.9 and BMI 29.0-29.9,adult Z68.29 [facility] [address] [facility] [address] [place], [place] [id number] 12/07/2024 Georgia Cortez Anxiety with depression F41.8 [facility] [address] [facility] [address] [facility] [address] [place], [place] [id number] 02/17/2025 Georgia Cortez [facility] [address] [facility] [address] [facility] [address] [place], [place] [id number] 04/17/2025 Georgia Cortez [facility] [address] [facility] [address] [facility] [address] [place], [place] [id number] 05/10/2025 Georgia Cortez Anxiety with depression F41.8 Assessments Encounter Date Diagnosis (ICD Code) Assessment Notes Treatment Notes Treatment Clinical Notes Section Notes 10/14/2024 Anxiety with depression (ICD-10 - F41.8) 12/07/2024 Anxiety with depression (ICD-10 - F41.8) 04/06/2025 BMI 29.0-29.9,adult (ICD-10 - Z68.29) 04/06/2025 Reducible umbilical hernia (ICD-10 - K42.9) 05/10/2025 Anxiety with depression (ICD-10 - F41.8) Plan Of Treatment No Information Insurance Providers Payer Name Payer Address Payer Phone Subscriber Number Group Number Insured Name Patient Relationship to Insured Coverage Start Date Coverage End Date AETNA [facility] [address] [place], [place] [id number] GARRETT LEIGH Self - patient is the insured Medications Administered Medication Instructions Date of Administration Dosage Notes Dexamethasone 06/15/2023 1 mL phenergan 25 mg/ml 07/27/2018 25 mg Medical (General) History Surgical History Surgery Date(Month/Year) tooth removed Hospitalization History Reason Date(Month/Year) [facility] ER-numbness in arms and legs 05/13/20 [facility] ER-sore throat 12/20/08
--- OUTSIDE RECORDS SUMMARY | 2025-06-02 10:38 | XMS_ITS | Clinical Summary ---
Author Organization [facility] Address [address] [place] [address] Care Team Providers Care Pharmacy Technician Assistant Name Role Phone Krishna Cortez MD Primary Care Provider [phone] Allergies No known active allergies Medications Vit-Fe Fumarate-FA ( ) 27-1 MG tablet tablet Take 1 tablet by mouth Daily. Active glucose blood test stripIndications :Gestational diabetes mellitus (GDM) in third trimester, gestational diabetes method of control unspecified Use as instructed; QID and PRN 200 each 2 11/25/2018 Active Lancet Device miscIndications: Gestational diabetes mellitus (GDM) in third trimester, gestational diabetes method of control unspecified 1 each 4 (Four) Times a Day. And PRN 200 each 2 11/25/2018 Active Active Problems Problem Noted Date Diagnosed Date Gestational diabetes mellitus (GDM) in third tri mester 11/25/2018 11/25/2018 Social History Tobacco Use Types Packs/Day Years Used Date Smoking Tobacco: Every Day Cigarettes Smokeless Tobacco: Never Alcohol Use Standard Drinks/Week Comments No 0 (1 standard drink = 0.6 oz pur e alcohol) AUDIT-C Answer Date Recorded Frequency of Alcohol Consumption Never 11/25/2018 Average Number of Drinks Not on file 019 Frequency of Binge Drinking Not on file 10/28 Abuse Screen Answer Date Recorded Unsafe at Home or Work/School Not on file Feels Threatened by Someone? Not on file 06/2023 Does Anyone Keep You from Co ntacting Others or Doint Things Outside the Home? Not on file 08/03/2023 Physical Sign of Abuse Present Not on file 1 Housing Stability Answer Date Recorded Current Living Arrangements Not on file 06/2023 Potentially Unsafe Housing Conditions Not on rolo e 08/03/2023 Family and Community Support Answer Sumeet e Recorded Help with Day-to-Day Activities Not on file 08/03/2023 Lonely or Isolated Not on file 08/03/2023 Employment Answer Date Recorded Do you want help finding or keeping work or a nicoel b? Not on file 08/03/2023 Disabilities Answer Date Recorded Concentrating, Remembering, or Making Decisions Difficulty Not on file 08/03/2023 Doing Errands Independently Difficulty Not on fi le 08/03/2023 Education Answer Date Recorded Help with school or training? Not on file Preferred Language Not on file 08/03/2023 Comments No Sex and Gender Information Value Date Recorded Sex Assigned at Not on file Legal Sex Female 1:28 PM EDT Gender Identity Not on file Sexual Orientation Not on file Last Filed Vital Signs Vital Sign Reading Time Taken Comments Blood Pressure 126/64 12/23/2018 11:48 AM EST Pulse - - Temperature - - Respiratory Rate - - Oxygen Saturation - - Inhaled Oxygen Concentration - - Weight 75.8 kg (167 lb) 12/23/2018 11:48 AM EST Height 165.1 cm (5' 5 ) 11/25/2018 12:39 PM EST Body Mass Index 27.79 11/25/2018 12:39 PM EST Plan of Treatment Health Maintenance Due Date Last Done Comments Annual Gynecologic Pelvic an d Breast Exam 1993 TDAP/TD VACCINES (1 - Tdap) 2012 ANNUAL PHYSICAL 11/16/2018 HEPATITIS C SCREENING 11/16/2018 COVID-19 Vaccine ( - 2023-2 5 season) 2024 INFLUENZA VACCINE 07/26/2025 Pneumococcal Vaccine 0-49 Aged Out No longer eligible based on patient's age to complete this topic Insurance [facility] PPO Care Teams Pharmacy Technician Assistant Relationship Specialty Start Date End Date Krishna Cortez MD [address] [facility] [address] [place] [id number] PCP - General Family Medicine 11/25/18
--- OUTSIDE RECORDS SUMMARY | 2025-06-02 10:38 | XMS_ITS | Clinical Summary ---
Author Organization [facility] Address [address] [place] [address] Care Team Providers Care Frothing Machine Operator Name Role Phone Fox Cortez Primary Care Provider [phone] Allergies Active Allergy Reactions Criticality Noted Date [...] Date Smoking Tobacco: Every Day Cigarettes 1.9 16.6 Started: 2008 Smokeless Tobacco: Never Alcohol Use [...] Years) (1 of 2 - PCV) 2012 AXY-CYVSE-21 Vaccine (1 - season) 2024 [facility]-Depression Screening [...] Reactive Non Reactive 04/07/2024 1:50 PM EDT [facility] Comment:Screening for HIV 1 & 2 antibodies, and P24 antigen is NONREACTIVE. No confirmatory testing is required. Blood Venous blood specimen / Unknown Venipuncture / Unknown 04/07/2024 11:16 AM EDT 04/07/2024 12:41 PM EDT Mehreen Sanchez APRN, CNM LAB BLOOD ORDERABLE S Final Result [facility] [address] [place] [address] * Hepatitis C Antibody w/Reflex to HCV Quant PCR (04/07/2024 11:16 AM EDT) Hepatitis C Antibody Negative Negative 04/07/2024 1:50 PM EDT [facility] Blood Venous blood specimen / Unknown Venipuncture / Unknown 04/07/2024 11:16 AM EDT 04/07/2024 12:41 PM EDT Mehreen Parekhney INTERNET CAFE MANAGER, ASTON LAB BLOOD ORDERABLE S Final Result [facility] [address] [place] [address] * Pap Test (11/23/2023 4:36 PM EST) Case Report Cytology Case: [id number] Authorizing Provider: Janae Corona APRN, DNP Collected: 11/23/2023 1636 Ordering Location: Obstetrics & Gynecology Received: 11/24/2023 1132 First Screen: Mony Sanders Rescreen: Ivett Garvin Specimen: ThinPrep Pap Test, Liquid-Based Cervical/Vaginal 12/07/2023 4:25 PM EST [facility] Interpretation NEGATIVE FOR INTRAEPITHELIAL LESION OR MALIGNANCY 12/07/2023 4:25 PM EST [facility] at 1625 EST Specimen Adequacy Satisfactory for evaluation; endocervical/nixon sformation zone component present. Slide scanned and imaged by CAXAPrep Imaging System with manual review of all selected mcnair. 12/07/2023 4:25 PM EST [facility] Cervical cytology is a screening test [...] results is suggested (please call Microbiology at [phone] for results). 12/07/2023 4:25 PM EST [facility] Menstrual Status Cyclic 12/07/19 24 4:25 PM EST [facility] Contraceptive History Not Applicable 12/07/2023 4:25 PM EST [facility] Screening Type Routine Screen 2023 4:25 PM EST [facility] High Risk? No 12/07/2023 4:25 PM EST [facility] HPV Testing Requested? Request HPV Testing Regardless of Pap Test Findings 12/07/2023 4:25 PM EST [facility] Previous Cancer History No 12/07/2023 4:25 PM EST [facility] Clinical Information Z01.411 - Encounter for [...] CYTOLOGY ORDERABLES Final Result [facility] [address] [place] [address] from Last 3 Months or Most Recently Relevant to Health Maintenance Advance Directives Documents on File Type Date Recorded Patient Tugboat Pilot Expl anation Power of Preparation Room Manager 11/23/2023 Care Teams Frothing Machine Operator Relationship Specialty Start Date [place] [address] PCP - General 11/23/23
== END 2025-06-01 23:59 | disposition home or self-care (01) ==
LOC: LAB.DROPOF 06-02 10:33
PROVIDERS: PCP Nurse Practitioner Obstetrics & Gynecology; Visit Provider Nurse Practitioner Obstetrics & Gynecology
DX: Z34.81 Encounter for supervision of other normal pregnancy, first trimester (principal)
CPT/HCPCS: 87086

== ENCOUNTER 2025-06-02 11:32 | Outpatient (CLI) | payer OTHER, SELFPAY ==
--- OUTSIDE RECORDS SUMMARY | 2025-06-02 11:34 | XMS_ITS | Clinical Summary ---
Author Organization [facility] Address [address] [place] [address] Care Team Providers Care Honing Machine Operator Production Name Role Phone Krishna Cortez MD Primary Care Provider [phone] Allergies No known active allergies Medications Vit-Fe [...] help finding or keeping work or a nicole b? Not on file 08/03/2023 Disabilities Answer [...] age to complete this topic Insurance [facility] PPO Care Teams Honing Machine Operator Production Relationship Specialty Start Date End Date Krishna Cortez MD [address] [facility] [address] [place] [address] PCP - General Family Medicine 11/25/18
--- OUTSIDE RECORDS SUMMARY | 2025-06-02 11:34 | XMS_ITS | Clinical Summary ---
Author Organization [facility] Address [address] [place] [address] Care Team Providers Care Printing Machinist Name Role Phone Fox Cortez Primary Care Provider Allergies Active Allergy Reactions Criticality Noted Date [...] Years) (1 of 2 - PCV) 2012 [id number]-AVOVL-45 Vaccine (1 - season) 2024 [facility]-Depression Screening [...] Reactive Non Reactive 04/07/2024 1:50 PM EDT [facility] Comment:Screening for HIV 1 & 2 antibodies, and P24 antigen is NONREACTIVE. No confirmatory testing is required. Blood Venous blood specimen / Unknown Venipuncture / Unknown 04/07/2024 11:16 AM EDT 04/07/2024 12:41 PM EDT Mehreen Sanchez APRN, CNM LAB BLOOD ORDERABLE S Final Result [facility] [address] [place] [address] * Hepatitis C Antibody w/Reflex to HCV Quant PCR (04/07/2024 11:16 AM EDT) Hepatitis C Antibody Negative Negative 04/07/2024 1:50 PM EDT [facility] Blood Venous blood specimen / Unknown Venipuncture / Unknown 04/07/2024 11:16 AM EDT 04/07/2024 12:41 PM EDT Mehreen Parekhney BRACER, ASTON LAB BLOOD ORDERABLE S Final Result [facility] [address] [place] [address] * Pap Test (11/23/2023 4:36 PM EST) Case Report Cytology Case: [id number] Authorizing Provider: Janae Corona APRN, DNP Collected: 11/23/2023 1636 Ordering Location: Obstetrics & Gynecology Received: 11/24/2023 1132 First Screen: Mony Sanders Rescreen: Ivett Garvin Specimen: ThinPrep Pap Test, Liquid-Based Cervical/Vaginal 12/07/2023 4:25 PM EST [facility] Interpretation NEGATIVE FOR INTRAEPITHELIAL LESION OR MALIGNANCY 12/07/2023 4:25 PM EST [facility] at 1625 EST Specimen Adequacy Satisfactory for evaluation; endocervical/nixon sformation zone component present. Slide scanned and imaged by Aldexa TherapeuticsPrep Imaging System with manual review of all selected mcnair. 12/07/2023 4:25 PM EST [facility] Cervical cytology is a screening test [...] results is suggested (please call Microbiology at [phone] for results). 12/07/2023 4:25 PM EST [facility] Menstrual Status Cyclic 12/07/19 24 4:25 PM EST [facility] Contraceptive History Not Applicable 12/07/2023 4:25 PM EST [facility] Screening Type Routine Screen 2023 4:25 PM EST [facility] High Risk? No 12/07/2023 4:25 PM EST [facility] HPV Testing Requested? Request HPV Testing Regardless of Pap Test Findings 12/07/2023 4:25 PM EST [facility] Previous Cancer History No 12/07/2023 4:25 PM EST [facility] Clinical Information Z01.411 - Encounter for [...] CYTOLOGY ORDERABLES Final Result [facility] [address] [place] [address] from Last 3 Months or Most Recently Relevant to Health Maintenance Advance Directives Documents on File Type Date Recorded Patient Picker Box Operator Expl anation Power of Cupola Charger 11/23/2023 Care Teams Printing Machinist Relationship Specialty Start [place] [address] PCP - General 11/23/23
[2025-06-02 11:57] LABS: Hematocrit 40.0 % (37.0-47.0); Hemoglobin 13.6 g/dL (12.2-16.2); Immature Granulocytes % 0.4 %; Mean Corpuscular HGB Conc 34.0 g/dL (31.8-35.4); Mean Corpuscular Hemoglobin 29.4 pg (27.0-31.2); Mean Corpuscular Volume 86.6 fl (81-99); Nucleated Red Blood Cells % 0 %; Platelet Count 261 K/mm3 (142-424); Red Blood Count 4.62 M/mm3 (4.20-5.40); Red Cell Distribution Width-SD 41.1 fL; White Blood Count 16.2 K/mm3 (4.8-10.8)
[2025-06-02 13:05] LABS: Hepatitis C Ab Qual. W/ RFX NEGATIVE (Negative)
[2025-06-02 14:31] LABS: RPR W/RFX Titers Nonreactive (Nonreactive)
[2025-06-03 05:09] LABS: Hepatitis B Surface Antigen Negative (Negative)
[2025-06-03 06:15] LABS: Rubella Antibodies, IgG 11.10 index (Immune >0.99)
== END 2025-06-02 23:59 | disposition home or self-care (01) ==
LOC: LAB 11:32
PROVIDERS: PCP Family Medicine; Visit Provider Nurse Practitioner Obstetrics & Gynecology
DX: Z34.81 Encounter for supervision of other normal pregnancy, first trimester (principal)
CPT/HCPCS: 36415; 85025; 86592; 86762; 86803; 86850; 87340; 87389

== ENCOUNTER 2025-06-08 13:45 | Outpatient (CLI) | payer OTHER, SELFPAY ==
--- OUTSIDE RECORDS SUMMARY | 2025-04-06 06:30 | XMS_ITS ---
Author Organization [facility] Address [address] [facility] [address] [place] [phone] Care Team Providers Care Welder Experimental Name Role Phone Georgia Cortez Primary Care Provider Jessica Arteaga Unavailable [phone] Allergies No Known Allergies Reason For Referral Diagnosis 1 Reducible umbilical hernia (K42.9) [facility] Referring Provider First Name Jessica Referring Provider Last Name Jenni Referring Provider Speciality Physician Line Ordering Clinician Referred Provider Specialty General Surg mandy General [...] HCl 50 MG TAKE 1 TABLET BY [facility] DAILY; Duration: 30 Active [...] 04/06/2025 Encounters Encounter Location Date Provider [facility] [address] [facility] [address] [place] [phone] 04/06/2025 Jessica Arteaga Reducible umbilical hernia K42.9 [...] * STANISLAV LEIGHOB: 3 (30 yo F)Acc No.[id number]:04/06/2025 Progress Notes Patient: LYDIA TOURE Provider: DEEPAK Hooker :1995 A ge:29 Y S ex:Female Date:04/06/2025 Address:[facility] [place], [facility] Pcp:Georgia Cortez Subjective: * Chief Complaints: * [...] Procedure: H ER-sore throat 12/20/08, [facility] ER-numbness in arms and legs [...] hernia - K42.9 (Primary) 2 . B [place] 29.0-29.9,adult - Z68.29 Plan: * Treatment: * Procedure Codes: G 8420 BMI<30 AND >=22 CALC & DOCU, G8783 BP SCR PRFRM RCMDD DEFIND SCR INTVL, G8752 MOST RECENT SYSTOLIC BP < 140MM HG, G8754 MOST RECENT DIASTOLIC BP < 90MM HG * Follow Up: w ith surgeon * Images: Billing Information: * Visit Code: 02737 Office Visit, Est Pt., Level 3. * Procedure Codes: G8420 BMI<30 AND >=22 CALC & DOCU. G8783 BP SCR PRFRM RCMDD DEFIND SCR INTVL. G8752 MOST RECENT SYSTOLIC BP < 140MM HG. G8754 MOST RECENT DIASTOLIC BP < 90MM HG. * Electronic signature of DEEPAK Byrd on 06/08/2025 at 02:04 PM EDT Sign off status: Pending * Provider: DEEPAK Hooekr Date: 0 04/06/2025 Generated for Kirstyi summer/Sarahy/eTransmitting on: 0 06/08/2025 02:04 PM EDT History and Physical Notes * [...]
--- NOTE | 2025-06-08 14:00 | US_ITS ---
PROCEDURE: US OB <= 14 WEEKS FETUS CLINICAL INDICATION: needs for dates and viability COMPARISON: No exams were available for comparison FINDINGS: Transvaginal sonographic images of the pelvis were obtained. From her last menstrual period she is 10weeks 4days. An intrauterine gestational sac is present with a pole with a crown-rump length of 5.35cm There is an anterior placenta. This correlates to a gestational age of 12weeks 1day. MIHIR 12/20/2025 heart tones are present with an FHR of 165bpm. The right ovary is seen and appears normal. The left ovary is seen and appears normal. There is trace fluid in the cul-de-sac. IMPRESSION: 1. Viable fetus within the uterine cavity. heart rate activity is seen. 2. Fetus measures larger than her dates and the MIHIR should be revised to reflect this. The new MIHIR will be 12/20/2025. 3. Both ovaries are seen and appear normal. 4. There is trace fluid in the cul-de-sac. Dictated by: Rodger Cruz MD 06/08/2025 19:10 Rodger Cruz MD in OV 06/08/2025 19:10
--- OUTSIDE RECORDS SUMMARY | 2025-06-08 14:04 | XMS_ITS | Clinical Summary ---
Author Organization [facility] Address [address] [place] [address] Care Team Providers Care Map Clerk Name Role Phone Fox Cortez Primary Care Provider [phone] Allergies Active Allergy Reactions Criticality Noted Date [...] Years) (1 of 2 - PCV) 2012 WPL-FXSNF-21 Vaccine (1 - season) 2024 [facility]-Depression Screening [...] Reactive Non Reactive 04/07/2024 1:50 PM EDT [facility] Comment:Screening for HIV 1 & 2 antibodies, and P24 antigen is NONREACTIVE. No confirmatory testing is required. Blood Venous blood specimen / Unknown Venipuncture / Unknown 04/07/2024 11:16 AM EDT 04/07/2024 12:41 PM EDT Mehreen Sanchez APRN, CNM LAB BLOOD ORDERABLE S Final Result [facility] [address] [place] [address] * Hepatitis C Antibody w/Reflex to HCV Quant PCR (04/07/2024 11:16 AM EDT) Hepatitis C Antibody Negative Negative 04/07/2024 1:50 PM EDT [facility] Blood Venous blood specimen / Unknown Venipuncture / Unknown 04/07/2024 11:16 AM EDT 04/07/2024 12:41 PM EDT Mehreen Parekhney MANAGER SOCIAL, ASTON LAB BLOOD ORDERABLE S Final Result [facility] [address] [place] [address] * Pap Test (11/23/2023 4:36 PM EST) Case Report Cytology Case: [id number] Authorizing Provider: Janae Corona APRN, DNP Collected: 11/23/2023 1636 Ordering Location: Obstetrics & Gynecology Received: 11/24/2023 1132 First Screen: Mony Sanders Rescreen: Ivett Garvin Specimen: ThinPrep Pap Test, Liquid-Based Cervical/Vaginal 12/07/2023 4:25 PM EST [facility] Interpretation NEGATIVE FOR INTRAEPITHELIAL LESION OR MALIGNANCY 12/07/2023 4:25 PM EST [facility] at 1625 EST Specimen Adequacy Satisfactory for evaluation; endocervical/nixon sformation zone component present. Slide scanned and imaged by BellybalooPrep Imaging System with manual review of all selected mcnair. 12/07/2023 4:25 PM EST [facility] Cervical cytology is a screening test [...] results is suggested (please call Microbiology at [phone] for results). 12/07/2023 4:25 PM EST [facility] Menstrual Status Cyclic 12/07/19 24 4:25 PM EST [facility] Contraceptive History Not Applicable 12/07/2023 4:25 PM EST [facility] Screening Type Routine Screen 2023 4:25 PM EST [facility] High Risk? No 12/07/2023 4:25 PM EST [facility] HPV Testing Requested? Request HPV Testing Regardless of Pap Test Findings 12/07/2023 4:25 PM EST [facility] Previous Cancer History No 12/07/2023 4:25 PM EST [facility] Clinical Information Z01.411 - Encounter for gynecological examination (general) (routine) with abnormal findings [ICD-10-CM] 12/07/2023 4:25 PM EST [facility] Last Menstrual Period 11/05/2023 12/07/2023 4:25 PM EST [facility] Swab Vaginal and cervical cytologic material / Unknown Non-blood Collection / Unknown 11/23/2023 4:36 PM EST 11/24/2023 11:32 AM EST us Janae Corona OFFSET PLATE MAKER CYTOLOGY ORDERABLES Final Result [facility] [address] [place] [address] from Last 3 Months or Most Recently Relevant to Health Maintenance Advance Directives Documents on File Type Date Recorded Patient Fire Alarm Dispatcher Expl anation Power of Double End Production Grinder 11/23/2023 Care Teams Map Clerk Relationship Specialty Start [place] [address] PCP - General 11/23/23
--- OUTSIDE RECORDS SUMMARY | 2025-06-08 14:04 | XMS_ITS | Clinical Summary ---
Author Organization [facility] Address [address] [place] [address] Care Team Providers Care Landscape Supervisor Name Role Phone Krishna Cortez MD Primary Care Provider [phone] Allergies No known active allergies Medications Vit-Fe [...] age to complete this topic Insurance [facility] PPO Care Teams Landscape Supervisor Relationship Specialty Start Date End Date Krishna Cortez MD [address] [facility] [address] [place] [address] PCP - General Family Medicine 11/25/18
== END 2025-06-08 23:59 | disposition home or self-care (01) ==
LOC: RAD 13:45
PROVIDERS: PCP Family Medicine; Visit Provider Nurse Practitioner Obstetrics & Gynecology
DX: O36.80X0 Pregnancy with inconclusive fetal viability, not applicable or unspecified (principal); Z3A.12 12 weeks gestation of pregnancy
CPT/HCPCS: 76801

== ENCOUNTER 2025-07-17 08:43 | Outpatient (CLI) | payer OTHER, SELFPAY ==
--- OUTSIDE RECORDS SUMMARY | 2024-10-14 07:15 | XMS_ITS ---
Author Organization Leann Address [address] [facility] 36 [facility] [address] [place] [id number] Care Team Providers Care Gravity Meter Observer Name Role Phone Georgia Cortez Primary Care Provider [phone] Jessica Arteaga Unavailable [phone] Allergies No Known Allergies REASON FOR VISIT [...] you a: smokes one ppd Vital Signs Weight 176.6 lbs 10/14/2024 Blood pressure systolic 120 mm Hg 10/14/20 24 Blood pressure diastolic 70 mm Hg 024 Heart Rate 75 /min 10/14/2024 Height 63.5 in 10/14/2024 BMI 30.79 kg/m2 10/14/2024 Encounters Encounter Location Date Provider Diagnosis [place]ann [address] [facility] [address] [place] [id number] 10/14/2024 Jessica Arteaga Anxiety with depress ion [...] * STANISLAV LEIGHOB: 3 (30 yo F)Acc No.[id number]:10/14/2024 Progress Notes Patient: GARRETT TOURE Provider: DEEPAK Hooker :1995 A ge:29 Y S ex:Female Date:10/14/2024 Address:[facility] [place], [id number] Pcp:Georgia Cortez Subjective: * Chief Complaints: * [...] Diagno stic Procedure: H ER-sore throat 12/20/08, [facility] ER-numbness in arms and legs 05/13/2020. [...] * Images: Billing Information: * Visit Code: 43222 Office Visit, Est Pt., Level 2. * Procedure Codes: * Electronic signature of DEEPAK Byrd on 07/17/2025 at 09:11 AM EDT Sign off status: Pending * Provider: DEEPAK Hooker Date: 1 12/15/2023 Generated for Jimenez wheeler/Sarahy/Maiteitting on: 0 07/17/2025 09:11 AM EDT History and Physical Notes * [...]
--- OUTSIDE RECORDS SUMMARY | 2025-04-06 06:30 | XMS_ITS ---
Author Organization [facility] Address [address] [facility] [address] [facility] [address] [place] [id number] Care Team Providers Care Float Remover Name Role Phone Georgia Cortez Primary Care Provider Jessica Arteaga Unavailable [phone] Allergies No Known Allergies Reason For Referral Diagnosis 1 Reducible umbilical hernia (K42.9) [facility] Referring Provider First Name Jessica Referring Provider Last Name Jenni Referring Provider Speciality Physician Supervisor Airplane Flight Attendant Referred Provider Specialty General Surg mandy General [...] HCl 50 MG TAKE 1 TABLET BY [facility] DAILY; Duration: 30 Active Social History [...] 04/06/2025 Encounters Encounter Location Date Provider Diagnosis [facility] [address] [facility] [address] [place] [id number] 04/06/2025 Jessica Arteaga Reducible umbilical hernia K42.9 [...] * STANISLAV LEIGHOB: 3 (30 yo F)Acc No.[id number]:04/06/2025 Progress Notes Patient: GARRETT TOURE Provider: DEEPAK Hooker :1995 A ge:29 Y S ex:Female Date:04/06/2025 Address:[facility] [address], [facility] Pcp:Georgia Cortez Subjective: * Chief Complaints: * [...] Diagno stic Procedure: H ER-sore throat 12/20/08, [facility] ER-numbness in arms and legs 05/13/2020. [...] hernia - K42.9 (Primary) 2 . B SD 29.0-29.9,adult - Z68.29 Plan: * Treatment: * Procedure Codes: G 8420 BMI<30 AND >=22 CALC & DOCU, G8783 BP SCR PRFRM RCMDD DEFIND SCR INTVL, G8752 MOST RECENT SYSTOLIC BP < 140MM HG, G8754 MOST RECENT DIASTOLIC BP < 90MM HG * Follow Up: w ith surgeon * Images: Billing Information: * Visit Code: 44850 Office Visit, Est Pt., Level 3. * Procedure Codes: G8420 BMI<30 AND >=22 CALC & DOCU. G8783 BP SCR PRFRM RCMDD DEFIND SCR INTVL. G8752 MOST RECENT SYSTOLIC BP < 140MM HG. G8754 MOST RECENT DIASTOLIC BP < 90MM HG. * Electronic signature of DEEPAK Byrd on 07/17/2025 at 09:12 AM EDT Sign off status: Pending * Provider: DEEPAK Hooker Date: 0 04/06/2025 Generated for Kirstyi summer/Sarahy/eTransmitting on: 0 07/17/2025 09:12 AM EDT History and Physical Notes * [...]
--- OUTSIDE RECORDS SUMMARY | 2025-07-17 09:11 | XMS_ITS | Clinical Summary ---
Author Organization [facility] Address [address] [place] [address] Care Team Providers Care Domestic Maid Name Role Phone Krishna Cortez MD Primary Care Provider [phone] Allergies No known active allergies Medications Vit-Fe [...] ANNUAL PHYSICAL 11/16/2018 HEPATITIS C SCREENING 11/16/2018 INFLUENZA VACCINE 05/26/2025 Pneumococcal Vaccine 0-49 Aged Out No longer eligible based on patient's age to complete this topic Insurance [facility] PPO Care Teams Domestic Maid Relationship Specialty Start Date End Date Krishna Cortez MD [address] [facility] [address] [place] [address] PCP - General Family Medicine 11/25/18
--- OUTSIDE RECORDS SUMMARY | 2025-07-17 09:12 | XMS_ITS | Patient Health Record ---
[facility] Organization [facility] Address [address] [place] [id number] Care Team Providers Care Chief Data Officer Name Role Phone Georgia Cortez Primary Care Provider Jessica Arteaga Unavailable [phone] Allergies No Known Allergies Medications Medication SIG (Take, Route, Fr equency, Duration) Notes Start Date End Date Status Sertraline HCl 50 MG 1 tablet Orally Onc e a day; Duration: 30 days Active busPIRone HCl 10 MG 1 tab(s) orally Two times a day; Duration: 30 days Active Immunizations Vaccine Route Administration Date Status Comme nts MMR Unknown 07/31/1994 Administered MMR Unknown 05/29/1997 Administered xGardasil IM Intramuscular 05/30/2009 Administered xGardasil IM Intramuscular 09/24/2009 Administered xGardasil IM Intramuscular 12/06/2009 Administered Social History Tobacco Use: Social History Observation Description Date Smoking Status WARNING: Information temporarily unavailable CURRENT TOBACCO USE: Question Answer Notes Are you a: smokes one ppd Problems Problem Type SNOMED Code ICD Code Onset Dates Problem Status W/U Status Risk Notes Problem Tachycardia (1694638) Tachycardia (R00.0) Active confirmed Problem Anxiety (71978892) Anxiety (F41.9) Active confirmed Problem Generalized anxiety disorder (60549905) Generalized anxiety disorder (F41.1) Active confirmed Problem Cyst of uterine adnexa (31407675579438) Adnexal cyst (N94.9) Active confirmed Problem Anxiety depression (757473966) Anxiety with depression (F41.8) Active confirmed Problem Panic disorder (109943984) Panic disorder [episodic paroxysmal anxiety] (F41.0) Active confirmed Vital Signs Heart Rate 73 /min 04/06/2025 Blood pressure diastolic 80 mm Hg 04/06/2025 Height 63.5 in 04/06/2025 Blood pressure systolic 130 mm Hg 04/06/2025 Weight 172.0 lbs 04/06/2025 BMI 29.99 kg/m2 04/06/2025 Encounters Encounter Location Date Provider Diagnosis [facility] [address] [facility] [address] [facility] [address] [place], [place] [id number] 10/14/2024 Jessica Jenni Anxiety with depression F41.8 [facility] [address] [place], [place] [id number] 04/06/2025 Jessica Crowdy Reducible umbilical hernia K42.9 and BMI 29.0-29.9,adult Z68.29 [facility] [address] [facility] [address] [place], [place] [id number] 12/07/2024 Georgia Cortez Anxiety with depression F41.8 [facility] [address] [facility] [address] [facility] [address] [place], [place] [id number] 02/17/2025 Georgia Cortez [facility] [address] [facility] [address] [facility] [address] [place], [place] [phone] 04/17/2025 Georgia Cortez [facility] [address] [facility] [address] [facility] [address] [place], [place] [id number] 05/10/2025 Georgia Cortez Anxiety with depression F41.8 [...] Coverage Start Date Coverage End Date [employer] [facility] [address] [place], [place] [id number] GARRETT LEIGH Self - patient is the insured Medications Administered Medication Instructions Date of Administration Dosage Notes Dexamethasone 06/15/2023 1 mL phenergan 25 mg/ml 07/27/2018 25 mg Medical (General) History Surgical History Surgery Date(Month/Year) tooth removed Hospitalization History Reason Date(Month/Year) [facility] ER-numbness in arms and legs 05/13/20 [facility] ER-sore throat 12/20/08
--- OUTSIDE RECORDS SUMMARY | 2025-07-17 09:12 | XMS_ITS | Clinical Summary ---
Author Organization [facility] Address [address] [place] [address] Care Team Providers Care Back End Web Developer Name Role Phone Fox Cortez Primary Care Provider [phone] Allergies Active Allergy Reactions Criticality Noted Date [...] Acute anxiety 11/23/2023 Atypical chest pain 11/23/2023 Leukocytosis 11/23/2023 Low back pain 11/23/2023 Muscle spasm 11/23/2023 Polycystic ovaries 11/23/2023 Severe acute respiratory syn drome coronavirus 2 (SARS-CoV-2) antibody positive 11/23/2023 Resolved Problems Problem Noted Date Diagnosed Date Resolved Date Supervision of other normal , antepartum 04/07/2024 04/18/2024 Bronchitis 11/23/2023 07/16/2025 Cough 11/23/2023 07/16/2025 Pelvic pain 11/23/2023 07/16/2025 Gestational diabetes mellitu s (GDM) in third [...] Date Smoking Tobacco: Every Day Cigarettes 1.9 16.7 Started: 2008 Smokeless Tobacco: Never Alcohol Use Standard Drinks/Week Comments Not Currently 0 (1 standard drink = 0.6 oz pur e alcohol) PHQ-2 Answer Date Recorded Patient Health Questionnaire-2 Score 0 04/18/2024 Comments Unknown Sex and Gender Information Value Date Recorded [...] Health Maintenance Due Date Last Done Comments [facility]-/Child/Adol SDOH Screenings 1993 [facility]-IPV Vaccines (2 of [...] Years) (1 of 2 - PCV) 2012 [facility]-Depression Screening 04/18/2025 04/18/2024 IES-SVRXZ-49 Vaccine (1 - season) 2025 [facility]-Influenza Vaccine (#1) 2025 [facility]-Pap Smear 11/23/2026 [...] Reactive Non Reactive 04/07/2024 1:50 PM EDT [facility] Comment:Screening for HIV 1 & 2 antibodies, and P24 antigen is NONREACTIVE. No confirmatory testing is required. Blood Venous blood specimen / Unknown Venipuncture / Unknown 04/07/2024 11:16 AM EDT 04/07/2024 12:41 PM EDT Mehreen Sanchez APRN, CNM LAB BLOOD ORDERABLE S Final Result [facility] [address] [place] [address] * Hepatitis C Antibody w/Reflex to HCV Quant PCR (04/07/2024 11:16 AM EDT) Hepatitis C Antibody Negative Negative 04/07/2024 1:50 PM EDT [facility] Blood Venous blood specimen / Unknown Venipuncture / Unknown 04/07/2024 11:16 AM EDT 04/07/2024 12:41 PM EDT us Mehreen Sanchez DAGO, ASTON LAB BLOOD ORDERABLE S Final Result [facility] [address] [place] [address] * Pap Test (11/23/2023 4:36 PM EST) Case Report Cytology Case: [id number] Authorizing Provider: Janae Corona APRN, DNP Collected: 11/23/2023 1636 Ordering Location: Obstetrics & Gynecology Received: 11/24/2023 1132 First Screen: Mony Sanders Rescreen: Ivett Garvin Specimen: ThinPrep Pap Test, Liquid-Based Cervical/Vaginal 12/07/2023 4:25 PM EST [facility] Interpretation NEGATIVE FOR INTRAEPITHELIAL LESION OR MALIGNANCY 12/07/2023 4:25 PM EST [facility] at 1625 EST Specimen Adequacy Satisfactory for evaluation; endocervical/nixon sformation zone component present. Slide scanned and imaged by ThinPrep Imaging System with manual review of all selected mcnair. 12/07/2023 4:25 PM EST [facility] Cervical cytology is a screening test [...] results is suggested (please call Microbiology at [phone] for results). 12/07/2023 4:25 PM EST [facility] Menstrual Status Cyclic 12/07/19 4:25 PM EST [facility] Contraceptive History Not Applicable 12/07/2023 4:25 PM EST [facility] Screening Type Routine Screen 2023 4:25 PM EST [facility] High Risk? No 12/07/2023 4:25 PM EST [facility] HPV Testing Requested? Request HPV Testing Regardless of Pap Test Findings 12/07/2023 4:25 PM EST [facility] Previous Cancer History No 12/07/2023 4:25 PM EST [facility] Clinical Information Z01.411 - Encounter for gynecological examination (general) (routine) with abnormal findings [ICD-10-CM] 12/07/2023 4:25 PM EST [facility] Last Menstrual Period 11/05/2023 12/07/2023 4:25 PM EST [facility] Swab Vaginal and cervical cytologic material / Unknown Non-blood Collection / Unknown 11/23/2023 4:36 PM EST 11/24/2023 11:32 AM EST us Janae Corona RN LAB CYTOLOGY ORDERABLES Final Result [facility] [address] [place] [address] from Last 3 Months or Most Recently Relevant to Health Maintenance Advance Directives Documents on File Type Date Recorded Patient Records Administrator Expl anation Power of Channeling Machine Operator 11/23/2023 Care Teams Back End Web Developer Relationship Specialty Start [place] [address] PCP - General 11/23/23
[2025-07-17 10:22] LABS: Glucose 1 Hour 221 mg/dL (74-100)
== END 2025-07-17 23:59 | disposition home or self-care (01) ==
PROVIDERS: PCP Family Medicine; Visit Provider Nurse Practitioner Obstetrics & Gynecology
DX: O09.299 Supervision of pregnancy with other poor reproductive or obstetric history, unspecified trimester (principal); Z86.32 Personal history of gestational diabetes; Z3A.00 Weeks of gestation of pregnancy not specified
CPT/HCPCS: 36415; 82947

== ENCOUNTER 2025-07-18 15:39 | Outpatient (CLI) | payer OTHER, SELFPAY ==
--- OUTSIDE RECORDS SUMMARY | 2024-10-14 07:15 | XMS_ITS ---
Author Organization Leann Address [facility] [facility] [address] [place] [phone] Care Team Providers Care Chain Tender Name Role Phone Georgia Cortez Primary Care Provider [phone] Jessica Arteaga Unavailable [phone] Allergies No Known Allergies REASON FOR VISIT [...] Provider Diagnosis Leann [address] [facility] [address] [place] [phone] 10/14/2024 Jessica Arteaga Anxiety with depress ion [...] * STANISLAV LEIGHOB: 3 (30 yo F)Acc No.[id number]:10/14/2024 Progress Notes Patient: GARRETT TOURE Provider: DEEPAK Hooker :1995 A ge:29 Y S ex:Female Date:10/14/2024 Address:[facility] [place], [id number] Pcp:Georgia Cortez Subjective: * Chief Complaints: * [...] Diagno stic Procedure: H ER-sore throat 12/20/08, [facility] ER-numbness in arms and legs 05/13/2020. * [...] * Images: Billing Information: * Visit Code: 33174 Office Visit, Est Pt., Level 2. * Procedure Codes: * Electronic signature of DEEPAK Byrd on 07/18/2025 at 03:42 PM EDT Sign off status: Pending * Provider: DEEPAK Hooker Date: 1 12/15/2023 Generated for Jimenez wheeler/Sarahy/Maiteitting on: 0 07/18/2025 03:42 PM EDT History and Physical Notes * [...]
--- OUTSIDE RECORDS SUMMARY | 2025-04-06 06:30 | XMS_ITS ---
Author Organization [facility] Address [address] [facility] 36 [facility] [address] [place] [id number] Care Team Providers Care Lokie Engineer Name Role Phone Georgia Cortez Primary Care Provider Jessica Arteaga Unavailable [phone] Allergies No Known Allergies Reason For Referral Diagnosis 1 Reducible umbilical hernia (K42.9) [facility] Referring Provider First Name Jessica Referring Provider Last Name Jenni Referring Provider Speciality Physician Vacuum Evaporation Operator Referred Provider Specialty General Surg mandy General [...] HCl 50 MG TAKE 1 TABLET BY [facility] DAILY; Duration: 30 Active Social History Tobacco Use: Social History Observation Description Date Smoking Status WARNING: Information temporarily unavailable CURRENT TOBACCO USE: Question Answer Notes Are you a: smokes one ppd Vital Signs Weight 172.0 lbs 04/06/2025 Blood pressure systolic 130 mm Hg 04/06/20 25 Blood pressure diastolic 80 mm Hg 025 Heart Rate 73 /min 04/06/2025 Height 63.5 in 04/06/2025 BMI 29.99 kg/m2 04/06/2025 Encounters Encounter Location Date Provider [facility] [address] [facility] [address] [place] [phone] 04/06/2025 Jessica Arteaga Reducible umbilical hernia K42.9 [...] * STANISLAV LEIGHOB: 3 (30 yo F)Acc No.[id number]:04/06/2025 Progress Notes Patient: GARRETT TOURE Provider: DEEPAK Hooker :1995 A ge:29 Y S ex:Female Date:04/06/2025 Address:[facility] [place] [place], [facility] Pcp:Georgia Cortez Subjective: * Chief Complaints: * [...] Diagno stic Procedure: H ER-sore throat 12/20/08, [facility] ER-numbness in arms and legs 05/13/2020. [...] hernia - K42.9 (Primary) 2 . B [place] 29.0-29.9,adult - Z68.29 Plan: * Treatment: * Procedure Codes: G 8420 BMI<30 AND >=22 CALC & DOCU, G8783 BP SCR PRFRM RCMDD DEFIND SCR INTVL, G8752 MOST RECENT SYSTOLIC BP < 140MM HG, G8754 MOST RECENT DIASTOLIC BP < 90MM HG * Follow Up: w ith surgeon * Images: Billing Information: * Visit Code: 30044 Office Visit, Est Pt., Level 3. * [...] 0 04/06/2025 Generated for Kirstyi summer/Sarahy/eTransmitting on: 0 07/18/2025 03:42 PM EDT History [...]
--- OUTSIDE RECORDS SUMMARY | 2025-07-18 15:42 | XMS_ITS | Clinical Summary ---
Author Organization [facility] Address [address] [place] [address] Care Team Providers Care Wall Man Name Role Phone Krishna Cortez MD Primary Care Provider [phone] Allergies No known active allergies Medications Vit-Fe [...] age to complete this topic Insurance [facility] PPO Care Teams Wall Man Relationship Specialty Start Date End Date Krishna Cortez MD [address] [facility] [address] [place] [address] PCP - General Family Medicine 11/25/18
--- OUTSIDE RECORDS SUMMARY | 2025-07-18 15:43 | XMS_ITS | Clinical Summary ---
Author Organization [facility] Address [address] [place] [address] Care Team Providers Care Acute Care Physician Name Role Phone Fox Cortez Primary Care Provider [phone] Allergies Active Allergy Reactions Criticality Noted Date [...] - PCV) 2012 [facility]-Depression Screening 04/18/2025 04/18/2024 [id number]-[id number]-32 Vaccine (1 - season) 2025 [facility]-Influenza Vaccine [...] S Final Result [facility] [address] [place] [address] * Hepatitis C Antibody w/Reflex to HCV Quant PCR (04/07/2024 11:16 AM EDT) Hepatitis C Antibody Negative Negative 04/07/2024 1:50 PM EDT [facility] Blood Venous blood specimen / Unknown Venipuncture / Unknown 04/07/2024 11:16 AM EDT 04/07/2024 12:41 PM EDT us Mehreen Sanchez DAGO, ASTON LAB BLOOD ORDERABLE S Final Result [facility] [address] [place] [address] * Pap Test (11/23/2023 4:36 PM EST) Case Report Cytology Case: [id number] Authorizing Provider: Janae Corona APRN, DNP Collected: 11/23/2023 1636 Ordering Location: Obstetrics & Gynecology Received: 11/24/2023 1132 First Screen: Mony Sanders Rescreen: Ivett Garvin Specimen: ThinPrep Pap Test, Liquid-Based Cervical/Vaginal 12/07/2023 4:25 PM EST [facility] Interpretation NEGATIVE FOR INTRAEPITHELIAL LESION OR MALIGNANCY 12/07/2023 4:25 PM EST [facility] at 1625 EST Specimen Adequacy Satisfactory for evaluation; endocervical/nixon sformation zone component present. Slide scanned and imaged by ThinPrep Imaging System with manual review of all selected mcnair. 12/07/2023 4:25 PM EST [facility] Cervical cytology is a screening [...] results is suggested (please call Microbiology at [phone] for results). 12/07/2023 4:25 PM EST [facility] Menstrual Status Cyclic 12/07/19 4:25 PM EST [facility] Contraceptive History Not Applicable 12/07/2023 4:25 PM EST [facility] Screening Type Routine Screen 2023 4:25 PM EST [facility] High Risk? No 12/07/2023 4:25 PM EST [facility] HPV Testing Requested? Request HPV [...] CYTOLOGY ORDERABLES Final Result [facility] [address] [place] [address] from Last 3 Months or Most Recently Relevant to Health Maintenance Advance Directives Documents on File Type Date Recorded Patient Template Layout Worker Expl anation Power of Nutrition Assistant 11/23/2023 Care Teams Acute Care Physician Relationship Specialty Start Date [place] [address] PCP - General 11/23/23
--- OUTSIDE RECORDS SUMMARY | 2025-07-18 15:43 | XMS_ITS | Patient Health Record ---
[facility] Address [address] [place] [id number] Care Team Providers Care Search Engine Optimization Specialist Name Role Phone Georgia Cortez Primary Care Provider [phone] Jessica Arteaga Unavailable [phone] Allergies No Known Allergies Medications Medication SIG [...] Status W/U Status Risk Notes Problem Tachycardia (6197214) Tachycardia (R00.0) Active confirmed Problem Anxiety (88696589) Anxiety (F41.9) Active confirmed Problem Generalized anxiety disorder (95050980) Generalized anxiety disorder (F41.1) Active confirmed Problem Cyst of uterine adnexa (22411479179551) Adnexal cyst (N94.9) Active confirmed Problem Anxiety depression (715353970) Anxiety with depression (F41.8) Active confirmed Problem Panic disorder (633600939) Panic disorder [episodic paroxysmal anxiety] (F41.0) Active confirmed Vital Signs Heart Rate 73 /min 04/06/2025 Blood pressure diastolic 80 mm Hg 04/06/2025 Height 63.5 in 04/06/2025 Blood pressure systolic 130 mm Hg 04/06/2025 Weight 172.0 lbs 04/06/2025 BMI 29.99 kg/m2 04/06/2025 Encounters Encounter Location Date Provider Diagnosis [facility] [address] [facility] [address] [facility] [address] [place], [place] [id number] 10/14/2024 Jessica Laragunjan Anxiety with depression F41.8 [facility] [address] [place], [place] [id number] 04/06/2025 Jessica Crowdy Reducible umbilical hernia K42.9 and BMI 29.0-29.9,adult Z68.29 [facility] [address] [facility] [address] [place], [place] [id number] 12/07/2024 Georgia Cortez Anxiety with depression F41.8 [facility] [address] [facility] [address] [facility] [address] [place], [place] [id number] 02/17/2025 Georgia Cortez [facility] [address] [facility] [address] [facility] [address] [place], [place] [id number] 04/17/2025 Georgia Cortez [facility] [address] [facility] [address] [facility] [address] [place], [place] [id number] 05/10/2025 Georgia Cortez Anxiety with depression F41.8 Assessments Encounter Date Diagnosis (ICD Code) Assessment Notes Treatment Notes Treatment Clinical Notes Section Notes 12/07/2024 Anxiety with depression (ICD-10 - F41.8) 05/10/2025 Anxiety with depression (ICD-10 - F41.8) 04/06/2025 BMI 29.0-29.9,adult (ICD-10 - Z68.29) 04/06/2025 Reducible umbilical hernia (ICD-10 - K42.9) 10/14/2024 Anxiety with depression (ICD-10 - F41.8) Plan Of Treatment No Information Insurance Providers Payer Name Payer Address Payer Phone Subscriber Number Group Number Insured Name Patient Relationship to Insured Coverage Start Date Coverage End Date AETNA [facility] [address] [place], [place] [id number] GARRETT LEIGH Self - patient is the insured Medications Administered Medication Instructions Date of Administration Dosage Notes Dexamethasone 06/15/2023 1 mL phenergan 25 mg/ml 07/27/2018 25 mg Medical (General) History Surgical History Surgery Date(Month/Year) tooth removed Hospitalization History Reason Date(Month/Year) [facility] ER-numbness in arms and legs 05/13/20 [facility] ER-sore throat 12/20/08
[2025-07-18 19:57] LABS: Hemoglobin A1C 5.4 % (4.0-6.0)
== END 2025-07-18 23:59 | disposition home or self-care (01) ==
LOC: LAB 15:39
PROVIDERS: PCP Family Medicine; Visit Provider Nurse Practitioner Obstetrics & Gynecology
DX: O09.299 Supervision of pregnancy with other poor reproductive or obstetric history, unspecified trimester (principal); Z86.32 Personal history of gestational diabetes; Z3A.00 Weeks of gestation of pregnancy not specified
CPT/HCPCS: 36415; 83036

== ENCOUNTER 2025-08-03 09:02 | Outpatient (CLI) | payer OTHER, SELFPAY ==
--- NOTE | 2025-08-03 09:00 | US_ITS ---
PROCEDURE: US OB /MATERNAL DETAIL CLINICAL INDICATION: schedule 20wk anatomy scan COMPARISON: US US OB <= 14 WEEKS FETUS from 06/08/2025 FINDINGS: Transabdominal sonographic images of the pelvis were obtained. From her established due date she is . Single viable intrauterine gestation. Breech position. Placenta: Anteriorplacenta grade 1. There is an average amount of fluid. The cervix appears satisfactory. Closed and measuring 3.6 cm in length. Complete survey performed and was unremarkable on the submitted images as in PACS. No discrete anomalies identified on survey imaging by technologist. Active fetus. Three-vessel cord with satisfactory umbilical cord insertion. 4- chamber heart noted. Situs, aortic arch, LVOT, RVOT, three-vessel view appear normal. Survey of brain & ventricles Unremarkable. Cerebellum, thalamus, choroid plexus, cisterna magna appear normal. Face and neck survey unremarkable. Profile, nasion, lips and nose appeared normal. Diaphragm and chest views unremarkable. Abdomen: Both kidneys noted and unremarkable. Stomach and bladder noted and satisfactory. Spine: Survey of the spine satisfactory with no anomalies identified nor imaged. Cervical, thoracic, lower spine appear normal. Both arms and legs noted. Amniotic Fluid: Adequate. MVP 4.84 cm. Measurements: Average ultrasound age 19weeks 4days. Estimated due date by ultrasound age 0312/24/2025. Estimated weight 297g BPD = 19weeks 5days HC = 19weeks 4days AC = 20weeks 1day FL = 18weeks 6days Growth Percentile= 16 Heart Rate = 152bpm Cerebellum = 19weeks 6days HC/AC is 1.14 FL/BPD is 0.64 FL/AC is 0.19 IMPRESSION: 1. Viable fetus in the breech presentation with an anterior placenta grade 1. 2. The fluid is within normal limits with an MVP 4.84 cm. 3. Anatomical scan appears normal. 4. biometry is consistent with the dates. Dictated by: Rodger Cruz MD 08/04/2025 05:31 Rodger Cruz MD in OV 08/04/2025 05:31
== END 2025-08-03 23:59 | disposition home or self-care (01) ==
LOC: RAD 09:03
PROVIDERS: PCP Family Medicine; Visit Provider Nurse Practitioner Obstetrics & Gynecology
DX: O32.1XX0 Maternal care for breech presentation, not applicable or unspecified (principal); Z3A.20 20 weeks gestation of pregnancy
CPT/HCPCS: 76811

== ENCOUNTER 2025-09-28 08:17 | Outpatient (CLI) | payer OTHER, SELFPAY ==
--- OUTSIDE RECORDS SUMMARY | 2024-10-14 06:15 | XMS_ITS ---
Author Organization Leann Address [address] [facility] [address] [facility] [address] [place] [id number] Care Team Providers Care Service Station Operator Name Role Phone Georgia Cortez Primary Care Provider Jessica Arteaga Unavailable [phone] Allergies No Known Allergies REASON FOR VISIT [...] Provider Diagnosis [place] [address] [facility] [address] [place] [id number] 10/14/2024 Jessica Arteaga Anxiety with depress ion [...] * STANISLAV LEIGHOB: 3 (30 yo F)Acc No.[id number]:10/14/2024 Progress Notes Patient: GARRETT TOURE Provider: DEEPAK Hooker :1995 A ge:29 Y S ex:Female Date:10/14/2024 Address:[facility] [place], [id number] Pcp:Georgia Cortez Subjective: * Chief Complaints: * [...] Diagno stic Procedure: H ER-sore throat 12/20/08, [facility] ER-numbness in arms and legs 05/13/2020. [...] * Images: Billing Information: * Visit Code: 38045 Office Visit, Est Pt., Level 2. * Procedure Codes: * Electronic signature of DEEPAK Byrd on 09/28/2025 at 08:19 AM EST Sign off status: Pending * Provider: DEEPAK Hooker Date: 12/15/2023 Generated for Jimenez wheeler/Sarahy/Maiteitting on: 11/29/2024 08:19 AM EST History and Physical Notes * [...]
--- OUTSIDE RECORDS SUMMARY | 2025-04-06 05:30 | XMS_ITS ---
Author [facility] [address] [facility] 36 [facility] [address] [place] [id number] Care Team Providers Care Pasteurizing Machine Operator Name Role Phone Georgia Cortez Primary Care Provider Jessica Arteaga Unavailable [phone] Allergies No Known Allergies Reason For Referral Diagnosis 1 Reducible umbilical hernia (K42.9) [facility] Referring Provider First Name Jessica Referring Provider Last Name Jenni Referring Provider Speciality Physician Manager Therapy Referred Provider Specialty General Surg mandy General Notes Zeynep Leggett 2024 12:25:05 PM > faxed to as I could not get her on the phone Referral Priority Routine REASON FOR VISIT knot in belly button Medications Medication SIG (Take, Route, Fr equency, Duration) Notes Start Date End Date Status busPIRone HCl 10 MG 1 tab(s) orally Two times a day; Duration: 30 day(s) Active Sertraline HCl 50 MG TAKE 1 TABLET BY [facility] DAILY; Duration: 30 Active Social History Tobacco Use: Social History Observation Description Date Smoking Status WARNING: Information temporarily unavailable CURRENT TOBACCO USE: Question Answer Notes Are you a: smokes one ppd Vital Signs Blood pressure systolic 130 mm Hg 04/06/20 25 Blood pressure diastolic 80 mm Hg 025 Heart Rate 73 /min 04/06/2025 Height 63.5 in 04/06/2025 Weight 172.0 lbs 04/06/2025 BMI 29.99 kg/m2 04/06/2025 Encounters Encounter Location Date Provider [facility] [address] [facility] [address] [place] [phone] 04/06/2025 Jessica Arteaga Reducible umbilical hernia K42.9 and BMI 29.0-29.9,adult Z68.29 Assessments Encounter Date Diagnosis (ICD Code) Assessment Notes Treatment Notes Treatment Clinical Notes Section Notes 04/06/2025 Reducible umbilical hernia (ICD-10 - K42.9) 04/06/2025 BMI 29.0-29.9,adult (ICD-10 - Z68.29) Plan Of Treatment Referrals Referral Date Details 04/06/2025 04/06/2025 Next Appt Details Follow Up: with surgeon, Malissa son: Progress Notes * STANISLAV LEIGHOB: 3 (30 yo F)Acc No.[id number]:04/06/2025 Progress Notes Patient: LYDIA TOURE Provider: DEEPAK Hooker :1995 A ge:29 Y S ex:Female Date:04/06/2025 Address:[facility] [place], [facility] Pcp:Georgia Cortez Subjective: * Chief Complaints: * 1 . Knot in belly button. * HPI: G astroenterology: The pt is here today with c/o a small jazmin on the right side of her belly button and has some pain with cough,sneeze, or jump. Pt states this started about 3 weeks ago. 29 year old female presents with c/o Abdominal Pain p eriumbilical. Denies : Nausea. D enies : Vomiting. D enies : Diarrhea. D enies : Fever. * ROS: D ERMATOLOGY: no R prince. n o H yarely. G ASTROENTEROLOGY: no N ausea. n o V omiting. n o D iarrhea.? U ROLOGY: no D ifficulty urinating. n o B lood in urine. * Medical History: M edical History Verified. * Surgical History: t ooth removed . * Hospitalization/Major Diagno stic Procedure: H ER-sore throat 12/20/08, [facility] ER-numbness in arms and legs 05/13/2020. * Family History: F ather: alive 57 yrs. M other: alive 56 yrs. P aternal Grand Father: alive. 1 [...] HCl 10 MG Tablet 1 tab(s) orally Two times a day , Taking Sertraline HCl 50 MG Tablet TAKE 1 TABLET BY MOUTH DAILY , Medication List reviewed and reconciled with the patient * Allergies: N .K.D.A. Objective: * Vitals: W t: 172.0, Temp: 98.0, BP: 130/80, HR: 73, Nurse: CAMILLE, Ht: 63.5, BMI:29.99. * Examination: G eneral Examination: General Appearance: N AD. C hest: n ormal shape and expansion. H eart: R SR. L ungs: c lear to auscultation. A bdomen: b owel sounds present, soft, there is a palpable umbilical hernia that is reducible. Assessment: * Assessment: 1. R educible umbilical hernia - K42.9 (Primary) 2 . B [place] 29.0-29.9,adult - Z68.29 Plan: * Treatment: * Procedure Codes: G 8420 BMI<30 AND >=22 CALC & DOCU, G8783 BP SCR PRFRM RCMDD DEFIND SCR INTVL, G8752 MOST RECENT SYSTOLIC BP < 140MM HG, G8754 MOST RECENT DIASTOLIC BP < 90MM HG * Follow Up: w ith surgeon * Images: Billing Information: * Visit Code: 89357 Office Visit, Est Pt., Level 3. * Procedure Codes: G8420 BMI<30 AND >=22 CALC & DOCU. G8783 BP SCR PRFRM RCMDD DEFIND SCR INTVL. G8752 MOST RECENT SYSTOLIC BP < 140MM HG. G8754 MOST RECENT DIASTOLIC BP < 90MM HG. * Electronic signature of DEEPAK Byrd on 09/28/2025 at 08:19 AM EST Sign off status: Pending * Provider: DEEPAK Hooker Date: 0 04/06/2025 Generated for Kirstyi summer/Sarahy/eTransmitting on: 1 11/29/2024 08:19 AM EST History and Physical Notes * HPI (History of Present Illness) Category Sub-Category Detail Notes Category Not es Gastroenterology Fever Vomiting Abdominal Pain periumbilical Diarrhea Nausea Examination Category Sub-Category Detail Notes Category Not es General Examination Heart: RSR Lungs: clear to auscultatio n Abdomen: bowel sounds present , soft, there is a palpable umbilical hernia that is reducible General Appearance: NAD Chest: normal shape and exp ansion Consultation Request Notes Referral Date Referring Provider Referred Provider Not es 04/06/2025 Jessica Arteaga ,
--- OUTSIDE RECORDS SUMMARY | 2025-09-22 10:15 | XMS_ITS ---
[facility] Address [address] [facility] [address] [place] [id number] Care Team Providers Care Admissions Clerk Name Role Phone Georgia Cortez Primary Care Provider Jessica Arteaga Unavailable [phone] Allergies No Known Allergies Results Component Value Reference Range Notes CBC Fingerstick (in house) Reviewed date:09/25/2025 12:57:00 AM Interpretation: Performing Lab: Notes/Report: wbc 20.7 3.5 - 10 lym 19.0 15 - 50 mid 5.5 2 - 15 gran 75.5 35 - 80 rbc 4.12 3.5 - 5.5 hgb 12.6 11.5 - 16.5 hct 36.3 35 - 55 mcv 88.1 75 - 100 mch 30.7 25 - 35 mchc 32.9 31 - 38 plat 196 100 - 400 REASON FOR VISIT cough, pain in rib Medications Medication SIG (Take, Route, Frequency, Duration) Notes Start Date End Date Status busPIRone HCl 10 MG 1 tab(s) orally Two times a day; Duration: 30 days Active Cefdinir 300 MG 1 cap(s) Orally Two times a day; Duration: 10 days 09/22/2025 Active Sertraline HCl 50 MG 1 tablet Orally Onc e a day; Duration: 30 days Active Albuterol Sulfate HFA 108 (90 Base) MCG/ACT 1 puff as needed Inhalation every 4 hrs, prn 09/22/2025 Active Social History Tobacco Use: Social History Observation Description Date Smoking Status WARNING: Information temporarily unavailable CURRENT TOBACCO USE: Question Answer Notes Are you a: smokes one ppd Vital Signs Blood pressure systolic 142 mm Hg 09/22/20 25 Blood pressure diastolic 70 mm Hg 025 Heart Rate 105 /min 09/22/2025 Height 63.5 in 09/22/2025 Weight 195 lbs 09/22/2025 BMI 34 kg/m2 09/22/2025 Encounters Encounter Location Date Provider Diagnosis [facility] [address] [place] [id number] 09/22/2025 Jessica Arteaga Bronchitis J40 Assessments Encounter Date Diagnosis (ICD Code) Assessment Notes Treatment Notes Treatment Clinical Notes Section Notes 09/22/2025 Bronchitis (ICD-10 - J40) Plan Of Treatment Medication Medication Name Sig Start Date Stop Date Notes Cefdinir 300 MG 1 cap(s) Orally Two times a day; Duration: 10 days 09/22/2025 Albuterol Sulfate HFA 108 (9 0 Base) MCG/ACT 1 puff as needed Inhalation every 4 hrs, prn 09/22/2025 Next Appt Details Follow Up: prn, Reason: Progress Notes * REESE STANISLAVOB: 3 (30 yo F)Acc No.[id number]:09/22/2025 Progress Notes Patient: GARRETT TOURE Provider: DEEPAK Hooker :1995 A ge:30 Y S ex:Female Date:09/22/2025 Address:[place], [place] Pcp:Georgai Cortez Subjective: * Chief Complaints: * 1 . Cough, pain in rib. * HPI: E NT/respiratory: Pt states these symptoms started on 08/25, she went to her OB on 08/29, and he gave her steroids and she started feeling better until last night. Pt states she's still having the cough. Pt states she is having rib pain since last night when she coughed and felt something pop. She is 7 months . 30 year old female presents with c/o cough s mall amount of white sputum. c/o nasal congestion s neezing, all the time, yellow drainage, clear drainage. c/o headache. Denies : sore throat. D enies : Fever. D enies : ear pain. D enies : Chest Pain. D enies : Short of Breath. D enies : chest congestion. D enies : dizziness. D enies : body aches. H PI: Patient is here today for P t states she needs refills on her meds. * ROS: D ERMATOLOGY: no R prince. n o H yarely. G ASTROENTEROLOGY: no N ausea. n o V omiting. n o D iarrhea.? U ROLOGY: no D ifficulty urinating. n o B lood in urine. * Medical History: M edical History Verified. * Surgical History: t ooth removed . * Hospitalization/Major Diagno stic Procedure: H ER-sore throat 12/20/08, [facility] ER-numbness in arms and legs 05/13/2020. [...] Sexually active: yes. * Medications: T aking Sertraline HCl 50 MG Tablet 1 tablet Orally Once a day , Taking busPIRone HCl 10 MG Tablet 1 tab(s) orally Two times a day , Medication List reviewed and reconciled with the patient * Allergies: N .K.D.A. Objective: * Vitals: W t: 195, Temp: 97.8, BP: 142/70, HR: 105, O2 Sat: 96% on RA, Nurse: pe, Ht: 63.5, BMI:34. * Examination: E NT/Respiratory: General Appearance: D oes not appear to feel well. E ars: a uditory canals normal bilaterally, TM's WNL. N ose : t urbinates red, congested.?Sinuses : t ttayana maxillary sinuses bilaterally. O ral cavity : e rythema without exudate on pharynx. N michael : n o cervical lymphadenopathy. H eart : R RR, normal S1 S2, no murmurs. L ungs: e xpiratory wheezes, no rales. Assessment: * Assessment: 1. B chapin - J40 (Primary) Plan: * Treatment: Value Reference Range w bc 20.7 3.5 - 10 * l ym 19.0 15 - 50 * m id 5.5 2 - 15 * g ran 75.5 35 - 80 * r bc 4.12 3.5 - 5.5 * h gb 12.6 11.5 - 16.5 * h ct 36.3 35 - 55 * m cv 88.1 75 - 100 * m ch 30.7 25 - 35 * m chc 32.9 31 - 38 * p lat 196 100 - 400 * Suyapa Cr 09/22/2025 04:37:58 PM EST > Provider reviewed results while patient in office. * Procedure Codes: 3 6416 CAPILLARY BLOOD DRAW, 70799 CBC WITH AUTO DIFF * Follow Up: p rn * Images: Billing Information: * Visit Code: 04286 Office Visit, Est Pt., Level 3. * Procedure Codes: 48753 CAPILLARY BLOOD DRAW. 89724 CBC WITH AUTO DIFF. * Electronic signature of DEEPAK Byrd on 09/28/2025 at 08:19 AM EST Sign off status: Pending * Provider: DEEPAK Hooker Date: 11/22/2024 Generated for Jimenez wheeler/Sarahy/Nelly on: 11/29/2024 08:19 AM EST History and Physical Notes * HPI (History of Present Illness) Category Sub-Category Detail Notes Category Not es ENT/respiratory sore throat ear pain Short of Breath Chest Pain cough small amount of whit e sputum Fever headache chest congestion nasal congestion sneezing, all the ti me, yellow drainage, clear drainage dizziness body aches HPI Patient is here today for Pt states she n eeds refills on her meds Examination Category Sub-Category Detail Notes Category Not es ENT/Respiratory Oral cavity : erythema without exudate on pharynx Sinuses : tender maxillary sin uses bilaterally Ears: auditory canals norm al bilaterally, TM's WNL Neck : no cervical lymphade nopathy Heart : RRR, normal S1 S2, n o murmurs Lungs: expiratory wheezes, no rales General Appearance: Does not appear to f eel well Nose : turbinates red, lashell ested
--- OUTSIDE RECORDS SUMMARY | 2025-09-28 08:20 | XMS_ITS | Patient Health Record ---
[facility] Address [address] [place] [id number] Care Team Providers Care Cost Estimator Name Role Phone Georgia Cortez Primary Care Provider Jenni Jessica Unavailable [phone] Allergies No Known Allergies Results Component Value [...] - 38 plat 196 100 - 400 Medications Medication SIG (Take, Route, Frequency, Duration) [...] Inhalation every 4 hrs, prn 09/22/2025 Active Immunizations Vaccine Route Administration Date Status [...] Status W/U Status Risk Notes Problem Tachycardia (1676978) Tachycardia (R00.0) Active confirmed Problem Anxiety (29719551) Anxiety (F41.9) Active confirmed Problem Generalized anxiety disorder (91074567) Generalized anxiety disorder (F41.1) Active confirmed Problem Cyst of uterine adnexa (01404169888175) Adnexal cyst (N94.9) Active confirmed Problem Anxiety depression (752254983) Anxiety with depression (F41.8) Active confirmed Problem Panic disorder (394892454) Panic disorder [episodic paroxysmal anxiety] (F41.0) Active confirmed Vital Signs Heart Rate 105 /min 09/22/2025 Blood pressure diastolic 70 mm Hg 09/22/2025 Height 63.5 in 09/22/2025 Blood pressure systolic 142 mm Hg 09/22/2025 Weight 195 lbs 09/22/2025 BMI 34 kg/m2 09/22/2025 Encounters Encounter Location Date Provider Diagnosis [facility] [address] [place], [place] [id number] 10/14/2024 Jessica Crowgunjan Anxiety with depression F41.8 [facility] [address] [facility] [address] [place] [id number] 04/06/2025 Jessica Crowdy Reducible umbilical hernia K42.9 and BMI 29.0-29.9,adult Z68.29 [facility] [address] [place], [place] [id number] 09/22/2025 Jessica Crowdy Bronchitis J40 [facility] [address] [place], [place] [id number] 12/07/2024 Georgia Cortez Anxiety with depression F41.8 [facility] [address] [place], [place] [id number] 02/17/2025 Georgia Cortez [facility] [address] [place], [place] [id number] 04/17/2025 Georgia Cortez [facility] [address] [place] [id number] 05/10/2025 Georgia Cortez Anxiety with depression F41.8 Assessments Encounter Date Diagnosis (ICD Code) Assessment Notes Treatment Notes Treatment Clinical Notes Section Notes 10/14/2024 Anxiety with depression (ICD-10 - F41.8) 12/07/2024 Anxiety with depression (ICD-10 - F41.8) 04/06/2025 BMI 29.0-29.9,adult (ICD-10 - Z68.29) 04/06/2025 Reducible umbilical hernia (ICD-10 - K42.9) 05/10/2025 Anxiety with depression (ICD-10 - F41.8) 09/22/2025 Bronchitis (ICD-10 - J40) Plan Of Treatment No Information Insurance Providers Payer Name Payer Address Payer Phone Subscriber Number Group Number Insured Name Patient Relationship to Insured Coverage Start Date Coverage End Date AETNA [facility] [address] [place], [place] [id number] GARRETT LEIGH Self - patient is the insured Medications Administered Medication Instructions Date of Administration Dosage Notes Dexamethasone 06/15/2023 1 mL phenergan 25 mg/ml 07/27/2018 25 mg Medical (General) History Surgical History Surgery Date(Month/Year) tooth removed Hospitalization History Reason Date(Month/Year) [facility] ER-numbness in arms and legs 05/13/20 [facility] ER-sore throat 12/20/08
[2025-09-28 09:55] LABS: Hematocrit 33.8 % (37.0-47.0); Hemoglobin 11.3 g/dL (12.2-16.2); Immature Granulocytes % 1.9 %; Mean Corpuscular HGB Conc 33.4 g/dL (31.8-35.4); Mean Corpuscular Hemoglobin 29.9 pg (27.0-31.2); Mean Corpuscular Volume 89.4 fl (81-99); Nucleated Red Blood Cells % 0 %; Platelet Count 293 K/mm3 (142-424); Red Blood Count 3.78 M/mm3 (4.20-5.40); Red Cell Distribution Width-SD 46.0 fL; White Blood Count 19.6 K/mm3 (4.8-10.8)
[2025-09-28 10:06] LABS: Glucose 1 Hour 221 mg/dL (74-100)
[2025-09-29 12:22] LABS: RPR W/RFX Titers Nonreactive (Nonreactive)
== END 2025-09-28 23:59 | disposition home or self-care (01) ==
PROVIDERS: PCP Family Medicine; Visit Provider Nurse Practitioner Obstetrics & Gynecology
DX: O09.292 Supervision of pregnancy with other poor reproductive or obstetric history, second trimester (principal); Z86.32 Personal history of gestational diabetes; Z3A.00 Weeks of gestation of pregnancy not specified
CPT/HCPCS: 36415; 82947; 85025; 86592

== ENCOUNTER 2025-10-10 08:31 | Outpatient (CLI) | payer OTHER, SELFPAY ==
--- OUTSIDE RECORDS SUMMARY | 2024-10-14 06:15 | XMS_ITS ---
Author Organization [facility] Address [address] [facility] [address] [id number] Care Team Providers Care Oceanology Teacher Name Role Phone Georgia Cortez Primary Care Provider Jessica Arteaga Unavailable [phone] Allergies No Known Allergies REASON FOR VISIT med checkup Medications Medication SIG (Take, Route, Fr equency, Duration) Notes Start Date End Date Status busPIRone HCl 10 MG 1 tab(s) orally Two times a day; Duration: 30 day(s) Active Sertraline HCl 50 MG 1 tab(s) orally onc e a day; Duration: 30 day(s) Active Social History Tobacco Use: Social History Observation Description Date Smoking Status WARNING: Information temporarily unavailable CURRENT TOBACCO USE: Question Answer Notes Are you a: smokes one ppd Vital Signs Blood pressure systolic 120 mm Hg 10/14/20 24 Blood pressure diastolic 70 mm Hg 024 Heart Rate 75 /min 10/14/2024 Height 63.5 in 10/14/2024 Weight 176.6 lbs 10/14/2024 BMI 30.79 kg/m2 10/14/2024 Encounters Encounter Location Date Provider Diagnosis [facility] [address] [facility] [address] [phone] 10/14/2024 Jessica Arteaga Anxiety with depress ion F41.8 Assessments Encounter Date Diagnosis (ICD Code) Assessment Notes Treatment Notes Treatment Clinical Notes Section Notes 10/14/2024 Anxiety with depression (ICD-10 - F41.8) Plan Of Treatment Medication Medication Name Sig Start Date Stop Date Notes busPIRone HCl 10 MG 1 tab(s) orally Two times a day; Duration: 30 day(s) Sertraline HCl 50 MG 1 tab(s) orally onc e a day; Duration: 30 day(s) Next Appt Details Follow Up: 3 Months, Reason: Progress Notes * STANISLAV LEIGHOB: 3 (30 yo F)Acc No.[id number]:10/14/2024 Progress Notes Patient: GARRETT TOURE Provider: DEEPAK Hooker :1995 A ge:29 Y S ex:Female Date:10/14/2024 Address:[facility] [address] [place], [id number] Pcp:Georgia Cortez Subjective: * Chief Complaints: * 1 . Med checkup. * HPI: H PI: 29 year old female presents with c/o Patient is here today for?Pt is here today for a medication check up. Pt sts she needs refills. She finds it difficult to take the buspar tid and usually does not take it that many times a day.. * ROS: D ERMATOLOGY: no R prince. n o H yarely. G ASTROENTEROLOGY: no N ausea. n o V omiting. n o D iarrhea.? U ROLOGY: no D ifficulty urinating. n o B lood in urine. * Medical History: M edical History Verified. * Surgical History: t ooth removed . * Hospitalization/Major Diagno stic Procedure: H ER-sore throat 12/20/08, [facility] ER-numbness in arms and legs 05/13/2020. * Family History: F ather: alive 56 yrs. M other: alive 55 yrs. P aternal Grand Father: alive. 1 brother(s) , 1 sister(s) - healthy. . * Social History: C URRENT TOBACCO USE A re you a: smokes one ppd. C affeine: yes, frequency:daily. Exercise: yes. Home smoke detector use: yes. Marital Status: Single. Past smoking status: yes, Smoking status: Patient does smoke. Recreational drug use: no. Alcohol: no. Sexually active: yes. * Medications: T aking busPIRone HCl 10 MG Tablet 1 tab(s) orally 3 times a day , Taking Sertraline HCl 50 MG Tablet 1 tab(s) orally once a day , Medication List reviewed and reconciled with the patient * Allergies: N .K.D.A. Objective: * Vitals: W t:176.6, Temp:98.4, BP:120/70, HR:75, Nurse:ROBIN, Ht: 63.5, BMI:30.79. * Examination: P sychology: General Appearance: N AD. G rooming : a dequate.?Eye contact : n ormal. M ood : p leasant. H eart: R SR. L ungs: c lear to auscultation. N eurologic Exam: I ntact, gait normal. Assessment: * Assessment: 1. A nxiety with depression - F41.8 (Primary) Plan: * Treatment: * Follow Up: 3 Months * Images: Billing Information: * Visit Code: 17928 Office Visit, Est Pt., Level 2. * Procedure Codes: * Electronic signature of DEEPAK Byrd on 10/10/2025 at 08:35 AM EST Sign off status: Pending * Provider: DEEPAK Hooker Date: 12/15/2023 Generated for Jimenez wheeler/Sarahy/Maiteitting on: 12/11/2024 08:35 AM EST History and Physical Notes * HPI (History of Present Illness) Category Sub-Category Detail Notes Category Not es HPI Patient is here today for Pt is here today for a medication check up. Pt sts she needs refills. She finds it difficult to take the buspar tid and usually does not take it that many times a day. Examination Category Sub-Category Detail Notes Category Not es Psychology Heart: RSR Lungs: clear to auscultatio n General Appearance: NAD Neurologic Exam: Intact, gait normal Grooming : adequate Eye contact : normal Mood : pleasant
--- OUTSIDE RECORDS SUMMARY | 2025-04-06 05:30 | XMS_ITS ---
Author Organization [facility] Address [address] [facility] [address] [place] [phone] Care Team Providers Care Bilingual Sales Assistant Name Role Phone Georgia Cortez Primary Care Provider Jessica Arteaga Unavailable [phone] Allergies No Known Allergies Reason For Referral Diagnosis 1 Reducible umbilical hernia (K42.9) [facility] Referring Provider First Name Jessica Referring Provider Last Name Jenni Referring Provider Speciality Physician Health Assistant Referred Provider Specialty General Surg mandy General [...] HCl 50 MG TAKE 1 TABLET BY [facility] DAILY; Duration: 30 Active Social History Tobacco [...] 04/06/2025 Encounters Encounter Location Date Provider [facility] [address] [facility] [address] [place] [phone] 04/06/2025 Jessica Arteaga Reducible umbilical hernia K42.9 [...] * STANISLAV LEIGHOB: 3 (30 yo F)Acc No.[id number]:04/06/2025 Progress Notes Patient: LYDIA TOURE Provider: DEEPAK Hooker :1995 A ge:29 Y S ex:Female Date:04/06/2025 Address:[facility] [place], [facility] Pcp:Georgia Cortez Subjective: * Chief Complaints: * [...] Diagno stic Procedure: H ER-sore throat 12/20/08, [facility] ER-numbness in arms and legs 05/13/2020. [...] hernia - K42.9 (Primary) 2 . B [place] 29.0-29.9,adult - Z68.29 Plan: * Treatment: * Procedure Codes: G 8420 BMI<30 AND >=22 CALC & DOCU, G8783 BP SCR PRFRM RCMDD DEFIND SCR INTVL, G8752 MOST RECENT SYSTOLIC BP < 140MM HG, G8754 MOST RECENT DIASTOLIC BP < 90MM HG * Follow Up: w ith surgeon * Images: Billing Information: * Visit Code: 83924 Office Visit, Est Pt., Level 3. * Procedure Codes: G8420 BMI<30 AND >=22 CALC & DOCU. G8783 BP SCR PRFRM RCMDD DEFIND SCR INTVL. G8752 MOST RECENT SYSTOLIC BP < 140MM HG. G8754 MOST RECENT DIASTOLIC BP < 90MM HG. * Electronic signature of DEEPAK Byrd on 10/10/2025 at 08:36 AM EST Sign off status: Pending * Provider: DEEPAK Hooker Date: 0 04/06/2025 Generated for Kirstyi summer/Sarahy/eTransmitting on: 1 12/11/2024 08:36 AM EST History and Physical Notes * [...]
--- OUTSIDE RECORDS SUMMARY | 2025-09-22 10:15 | XMS_ITS ---
[facility] Address [address] [facility] [address] [place] [id number] Care Team Providers Care Captain Waiter/Waitress Name Role Phone Georgia Cortez Primary Care Provider Jessica Arteaga Unavailable [phone] Allergies No Known Allergies Results Component Value [...] [address] [place] [id number] 09/22/2025 Jessica Arteaga Bronchitis J40 Assessments Encounter [...] * REESE STANISLAVOB: 3 (30 yo F)Acc No.[id number]:09/22/2025 Progress Notes Patient: GARRETT TOURE Provider: DEEPAK Hooker :1995 A ge:30 Y S ex:Female Date:09/22/2025 Address[place], [place] Pcp:Georgia Cortez Subjective: * Chief Complaints: * [...] Diagno stic Procedure: H ER-sore throat 12/20/08, [facility] ER-numbness in arms and [...] : t urbinates red, congested.?Sinuses : t tatyana maxillary sinuses bilaterally. O ral cavity : [...] Procedure Codes: 3 6416 CAPILLARY BLOOD DRAW, 13898 CBC WITH AUTO DIFF * Follow Up: p rn * Images: Billing Information: * Visit Code: 10584 Office Visit, Est Pt., Level 3. * Procedure Codes: 02592 CAPILLARY BLOOD DRAW. 45480 CBC WITH AUTO DIFF. * Electronic signature of DEEPAK Byrd on 10/10/2025 at 08:35 AM EST Sign off status: Pending * Provider: DEEPAK Hooker Date: 11/22/2024 Generated for Jimenez wheeler/Sarahy/Nelly on: 12/11/2024 08:35 AM EST History and [...]
--- OUTSIDE RECORDS SUMMARY | 2025-10-10 08:36 | XMS_ITS | Clinical Summary ---
Author Organization [facility] Address [address] [place] [address] Care Team Providers Care Jackscrew Man Name Role Phone Krishna Cortez MD Primary Care Provider [phone] Allergies No known active allergies Medications Vit-Fe [...] age to complete this topic Insurance [facility] PPO Care Teams Jackscrew Man Relationship Specialty Start Date End Date Krishna Cortez MD [address] [facility] [address] [place] [address] PCP - General Family Medicine 11/25/18
--- OUTSIDE RECORDS SUMMARY | 2025-10-10 08:37 | XMS_ITS | Patient Health Record ---
[facility] [address] [place] [id number] Care Team Providers Care Consultative Sales Associate Name Role Phone Georgia Cortez Primary Care Provider Jessica Arteaga Unavailable [phone] Allergies No Known Allergies Results Component Value [...] Status W/U Status Risk Notes Problem Tachycardia (3597792) Tachycardia (R00.0) Active confirmed Problem Anxiety (48236955) Anxiety (F41.9) Active confirmed Problem Generalized anxiety disorder (23553664) Generalized anxiety disorder (F41.1) Active confirmed Problem Cyst of uterine adnexa (96859345516438) Adnexal cyst (N94.9) Active confirmed Problem Anxiety depression (650842858) Anxiety with depression (F41.8) Active confirmed Problem Panic disorder (434657323) Panic disorder [episodic paroxysmal anxiety] (F41.0) Active confirmed Vital Signs Heart Rate 105 /min 09/22/2025 Blood pressure diastolic 70 mm Hg 09/22/2025 Height 63.5 in 09/22/2025 Blood pressure systolic 142 mm Hg 09/22/2025 Weight 195 lbs 09/22/2025 BMI 34 kg/m2 09/22/2025 Encounters Encounter Location Date Provider Diagnosis [facility] [address] [facility] [address] [place], [place] [id number] 10/14/2024 Jessica Crowgunjan Anxiety with depression F41.8 [facility] [address] [facility] [address] [place] [id number] 04/06/2025 Jessica Crowdy Reducible umbilical hernia K42.9 and BMI 29.0-29.9,adult Z68.29 [facility] [address] [place], [place] [id number] 09/22/2025 Jessica Crowdy Bronchitis J40 [facility] [address] [place], [place] [id number] 12/07/2024 Georgia Cortez Anxiety with depression F41.8 [facility] [address] [place], [place] [id number] 02/17/2025 Georgia Cortez [facility] [address] [facility] [address] [place], [place] [id number] 04/17/2025 Georgia Cortez [facility] [address] [place] [id number] 05/10/2025 Georgia Cortez Anxiety with depression F41.8 [...] Coverage Start Date Coverage End Date AETNA [facility] [address] [place], [place] [id number] GARRETT LEIGH Self - patient is the insured Medications Administered Medication Instructions Date of Administration Dosage Notes Dexamethasone 06/15/2023 1 mL phenergan 25 mg/ml 07/27/2018 25 mg Medical (General) History Surgical History Surgery Date(Month/Year) tooth removed Hospitalization History Reason Date(Month/Year) [facility] ER-numbness in arms and legs 05/13/20 [facility] ER-sore throat 12/20/08
--- OUTSIDE RECORDS SUMMARY | 2025-10-10 08:37 | XMS_ITS | Clinical Summary ---
Author Organization [facility] Address [address] [place] [address] Care Team Providers Care Donkey Engine Firer/Fireman Name Role Phone Fox Cortez Primary Care Provider [phone] Allergies Active Allergy Reactions Criticality Noted Date [...] Date Smoking Tobacco: Every Day Cigarettes 1.9 17 Started: 2008 Smokeless Tobacco: Never Alcohol Use [...] - PCV) 2012 [facility]-Depression Screening 04/18/2025 04/18/2024 [id number] Vaccine (1 - season) 2025 [facility]-Influenza Vaccine [...] S Final Result [facility] [address] [place] [address] * Hepatitis C Antibody w/Reflex to HCV Quant PCR (04/07/2024 11:16 AM EDT) Hepatitis C Antibody Negative Negative 04/07/2024 1:50 PM EDT [facility] Blood Venous blood specimen / Unknown Venipuncture / Unknown 04/07/2024 11:16 AM EDT 04/07/2024 12:41 PM EDT us Mehreen Sanchez DAGO, CNM LAB BLOOD ORDERABLE S Final Result [facility] [address] [place] [address] * Pap Test (11/23/2023 4:36 PM EST) Case Report Cytology Case: [id number] Authorizing Provider: Janae Corona APRN, DNP Collected: 11/23/2023 1636 Ordering Location: Obstetrics & Gynecology Received: 11/24/2023 1132 First Screen: Mony Sanders Rescreen: Ivett Garvin Specimen: ThinPrep Pap Test, Liquid-Based Cervical/Vaginal 12/07/2023 4:25 PM EST [facility] Interpretation NEGATIVE FOR INTRAEPITHELIAL LESION OR MALIGNANCY 12/07/2023 4:25 PM EST [facility] at 1625 EST Specimen Adequacy Satisfactory for evaluation; endocervical/nixon sformation zone component present. Slide scanned and imaged by ThinPrep Imaging System with manual review of all selected mcnair. 12/07/2023 4:25 PM EST [facility] Cervical cytology is a screening test [...] results is suggested (please call Microbiology at [phone] for results). 12/07/2023 4:25 PM EST [facility] Menstrual Status Cyclic 12/07/19 4:25 PM EST [facility] Contraceptive History Not Applicable 12/07/2023 4:25 PM EST [facility] Screening Type Routine Screen 2023 4:25 PM EST [facility] High Risk? No 12/07/2023 4:25 PM EST [facility] HPV Testing Requested? Request HPV Testing Regardless of Pap Test Findings 12/07/2023 4:25 PM EST [facility] Previous Cancer History No 12/07/2023 4:25 PM EST [facility] Clinical Information Z01.411 - Encounter for gynecological examination (general) (routine) with abnormal findings [ICD-10-CM] 12/07/2023 4:25 PM EST [facility] Last Menstrual Period 11/05/2023 12/07/2023 4:25 PM EST [facility] Swab Vaginal and cervical cytologic material / Unknown Non-blood Collection / Unknown 11/23/2023 4:36 PM EST 11/24/2023 11:32 AM EST us Janae Corona APRN LAB CYTOLOGY ORDERABLES Final Result [facility] [address] [place] [address] from Last 3 Months or Most Recently Relevant to Health Maintenance Advance Directives Documents on File Type Date Recorded Patient Correctional Lieutenant Expl anation Power of Physician In Private Practice 11/23/2023 Care Teams Donkey Engine Firer/Fireman Relationship Specialty Start Date [place] [address] PCP - General 11/23/23
[2025-10-10 10:23] LABS: Glucose,Fasting 104 mg/dl (74-100)
[2025-10-10 10:27] LABS: Glucose 1 Hour 281 mg/dL (74-100)
[2025-10-10 11:52] LABS: Glucose 2 Hour 243 mg/dL (74-100)
[2025-10-10 12:57] LABS: Glucose 3 Hour 154 mg/dL (74-100)
== END 2025-10-10 23:59 | disposition home or self-care (01) ==
LOC: LAB 08:32
PROVIDERS: PCP Family Medicine; Visit Provider Nurse Practitioner Obstetrics & Gynecology
DX: O99.810 Abnormal glucose complicating pregnancy (principal); Z3A.00 Weeks of gestation of pregnancy not specified
CPT/HCPCS: 36415; 82951